=== PATIENT | male | born 1985 | race Caucasian/White ===

== ENCOUNTER 2024-02-23 08:37 | Outpatient (AMB) | payer OTHER, SELFPAY ==
--- NOTE | 2024-02-23 08:49 | A.OFFPC_ITS ---
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 Intake Note: patient here for new patient visit c/o high BP meds needed Field Research Associate Required: No Allergies No Known Allergies Allergy (Verified 02/23/24 09:05) Medication List - Last Reconciled 02/23/24 by Nancy Marlow CNP carvedilol 6.25 mg PO BID empagliflozin (Jardiance) 10 mg PO DAILY sacubitril-valsartan 49-51 mg (Entresto) 1 tab PO BID Tobacco use date assessed: 02/23/24 Dental Screening Dental Screen Date: 02/23/24 Did you have a dental visit in the last 12 months?: No Did you have a dental problem in the last 6 months where you did not have access to dental care?: No Was dental information given to patient?: Yes HPI HPI Comments History of Present Illness Details The patient presents for a new patient visit without any specific complaints. The patient is a 39-year-old male presenting for a new patient visit. He has a history of Congestive Heart Failure (CHF), Essential Hypertension, psoriasis, and nearsightedness. The CHF incident occurred back in November, where he was hospitalized in the ICU for approximately five days (from Friday to ) at [facility] due to exacerbation of CHF. Since the hospitalization, he has been under the care of a engraver tire mold, Dr. Calvin Trevino at [facility] in [facility], and has been following a low sodium diet as a preventative measure. The patient has not experienced any further complications post-hospitalization and reports compliance with his prescribed medications. His previous primary care physician was Dr. Álvaro Little at [facility], with his last visit being prior to COVID-19 onset in early 2019. The patient was previously on carvedilol 6.25 mg twice daily, sacubitril-valsartan (Entresto) 49-51 mg twice daily, and Jardiance 10 mg daily, which he continues to take. He as been using a steroid cream, does not recall name, for his psoriasis. He usually get psoriasis rash to his neck, anterior trunk and upper thighs; no acute flare up or itching at this time. He has a history of smoking, having quit in [id number] after approximately 8-10 years of a pack-a-day habit. He has refrained from smoking since and does not use recreational drugs or consume alcohol. Social History - Employment: Works in [employer], highly mobile due to job tasks at [employer]. - Housing: Resides in [place]. - Substance Use: Previous smoker (8-10 y ears, ceased in ), non-drinker, no recreational drug use. - Exercise: No regular exercise regimen, reliant on job for physical activity. - Nutritional Intake: Adheres to a low-s odium diet post-CHF incident; significant dietary changes to healthier eating habits avoiding junk food and snacking on almonds. Health Maintenance - Tetanus Vaccine: Last received over te n years ago, recommended to receive during this visit. - Influenza Vaccine: Not yet received year, plans to receive at the [facility]. - Eye Examination: Last performed approx imately four years ago, requires referral to ophthalmology for routine eye exam. - Dental Care: Last visit to a dentist w as more than four years ago; encouraged to follow up. - Prostate-Specific Antigen: Recommended for screening. - Weight Management: Current weight levamy l at 259 pounds, BMI is 37.2; suggested diet and exercise moderation and optional referral to a product examiner. 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 1. Little interest or pleasure in doing things: more than half the days 2. Feeling down, depressed, or hopeless: not at all 3. Trouble falling or staying asleep, or sleeping too much: not at all 4. Feeling tired or having little energy: not at all 5. Poor appetite or overeating: not at all 6. Feeling bad about yourself - or that you are a failure or have let yourself or your family down: not at all 7. Trouble concentrating on things, such as reading the newspaper or watching television: not at all 8. Moving or speaking so slowly that other people could have noticed. Or the opposite - being so fidgety or restless that you have been moving around a lot more than usual: not at all 9. Thoughts that you would be better off or of hurting yourself in some way: not at all Total score: 2 Depression Screening Interpretation: Negative Depression Screening Done: Yes 56237 - PHQ-9 Billing: Yes Source: Developed by Drs. Lalito Briggs, Shayy Feldman, Tony Lizama and colleagues, with an educational joe from [employer]. Thrive Questionnaire Date Thrive assessed: 02/23/24 I am a: Patient What is your living situation today?: I have a steady place to live Within the past 12 months, did the food you bought not last and you didn't have the money to get more?: Never true Within the past 12 months, did you worry whether your food would run out before you got money to buy more?: Never true Do you have trouble paying for medicines?: No Do you have trouble getting transportation to medical appointments?: No Do you have trouble paying your heating and electricity bill?: No Do you have trouble taking care of your child, family member or friend?: No Do you have trouble with day-to-day activities such as bathing, preparing meals, shopping, managing finances, etc.?: No Are you currently unemployed and looking for a job?: No Are you interested in more education?: No Please select the resources that you would like help with: None Currently or been in a relationship where the following occur: No concerns reported THRIVE Score: 0 AUDIT C Alcohol Use Questionnaire (AUDIT-C) 1. How often do you have a drink containing alcohol?: Never Total Score: 0 ROHITH-7 AMB Questionnaire ROHITH-7 Date ROHITH - 7 assessed: 02/23/24 Feeling nervous, anxious, or on edge: 0 = Not at all Not being able to stop or control worryin = Not at all Worrying too much about different things: 0 = Not at all Trouble relaxin = Not at all Being so restless that it is hard to sit still: 0 = Not at all Becoming easily annoyed or irritable: 1 = Several days Feeling afraid as if something awful might happen: 0 = Not at all Total ROHITH-7 score (0-4 normal; 5-9 mild; 10-14 moderate; 15-21 severe): 1 Source: Developed by Drs. Lalito Briggs, Shayy Feldman, Tony Lizama and colleagues, with an educational joe from [employer]. ROHITH-7 Assessment Billing ROHITH-7 Assessment Tool: ROHITH-7 Assessment 04506 Review of Systems Const Details: Denies chills, Denies fatigue, Denies fever(s), Denies headache(s) and Denies weakness HEENT Denies change in vision, Denies dizziness, Denies headache(s), Denies hearing loss, Denies nasal congestion, Denies sinus pain, Denies sinus pressure and D enies sore throat Card Denies chest pain, Denies lightheadedness, Denies dyspnea and Denies other (palpitations) Resp Denies cough, Denies dyspnea and Denies wheezing GI Denies abdominal pain, Denies melena, Denies hematochezia, Denies change in bowel habits, Denies dyspepsia and Denies nausea Denies hematuria and Denies dysuria Musc Denies abnormal gait, Denies myalgias, Denies arthralgias, Denies numbness and Denies tingling Skin/Breast Reports psoriatic rash to his right lateral neck, Denies unusual bruising and Denies wounds Neuro Denies abnormal gait, Denies dizziness, Denies headache(s), Denies memory loss, Denies numbness, Denies Sensory deficit (Neuro), Denies tingling and Denies weakness Psych Denies anxiety, Denies depression and Denies memory loss Endo Denies cold intolerance, Denies fatigue, Denies heat intolerance, Denies polydipsia and Denies polyuria Maximiliano/Lymph Denies easy bleeding and Denies easy bruising Aller/Immun Denies wheezing Physical exam (Primary Care) Vital Signs: Last Vital Signs Temp 98.1 F 02/23/24 09:03 Pulse 76 02/23/24 09:03 Resp 16 02/23/24 09:03 BP 111/66 02/23/24 09:03 Pulse Ox 97 02/23/24 09:03 Oxygen Delivery Method Room Air 02/23/24 09:03 BMI result Body Mass Index 37.2 Tobacco/Smoking Status: Tobacco use Status Tobacco use date assessed 02/23/24 02/23/24 09:00 Patient Tobacco Use Status Former Tobacco user 02/23/24 09:00 e-Cigarette/Vaping Use Never Used 02/23/24 09:00 PHQ-9: PHQ-9 Score PHQ-9: Total score 2 02/23/24 09:06 Depression Screening Interpretation: Negative Thrive Assessment: Date of Thrive Assessment Date Thrive assessed 02/23/24 02/23/24 09:06 Currently or been in a relationship where the following occur: No concerns reported Const Other: General: no acute distress, well developed, alert and awake Nutritional Appearance: well nourished Orientation/consciousness: patient oriented x3 HENMT Head: Yes normocephalic and Yes atraumatic Ears: hearing grossly normal bilaterally and TM's normal bilaterally General nose exam: Normal external nose present and Normal nares present Mouth: Normal oral and palatal mucosa present and moist mucous membranes Teeth and gingiva: dentition normal Throat: Yes oropharynx normal Eyes Pupils: Equal, round and reactive pupils present and Pupil accommodation reflex normal EOM: EOMs intact bilaterally Neck Neck: Yes normal visual inspection, Yes no lymphadenopathy and Yes trachea midline Thyroid: Thyroid normal Carotids: no bruits Lymphatic: no lymphadenopathy noted Chest Chest palpation & inspection: normal inspection of the chest Resp Effort & Inspection: normal respiratory effort Auscultation: clear to auscultation bilaterally Cardio Rate: regular rate Rhythm: regular rhythm Heart sounds: S1 normal heart sound present, S2 normal heart sound present, no gallops, no murmurs and no rubs Bruits: no abdominal aortic bruits and no carotid bruits GI Palpation (GI): No Abdominal aortic bruit present, Soft to palpation, nontender, No hepatosplenomegaly present and No Rebound tenderness present Auscultation: normal bowel sounds General: Yes no CVA tenderness Back/Spine/Pelvis Back: no CVA tenderness Cervical Spine: cervical ROM normal and No Cervical spine tenderness Thoracic/Lumbar Spine: thoraco-lumbar ROM normal, No pain with thoraco-lumbar ROM, No thoracic spinal tenderness and No lumbar spinal tenderness Skin General: warm and dry. Normal skin color. Normal skin turgor Lesions: no lesions Rashes: Red, raised, patches to his right lateral neck, consistent with psoriasis Trauma: no lacerations or abrasions Wounds: no wounds Nails: normal Neuro General: patient oriented x3, gait normal and CN's II-XI intact bilaterally Cranial nerves: Yes Equal, round and reactive pupils present Cognition (Neuro): normal cognition Gait exam (Neuro): Normal gait present Motor exam (neuro): 5/5 motor strength present throughout Sensory Exam: No Sensory deficit (Neuro) Deep tendon reflexes (DTR's): Right patellar reflex intensity grade: 2+ and Left patellar reflex intensity grade: 2+ Extrem General: Yes normal to inspection, No edema and No calf tenderness Psych Appearance: grossly normal Affect: normal affect Attitude: cooperative Thought process: Normal thought process present Immunizations Boostrix Tdap 2.5 Lf unit-8 mcg-5 Lf/0.5 mL intramuscular syringe Performing Provider: Nancy Marlow CNP Performing Location: [facility] [place] [facility] Administered by: Luci Stratton RN on 02/23/24 09:58 Dose Route Admin Location Dispensed Lot Number Expiration Date NDC Sinter Machine Operator 0.5 mL IM Right Deltoid 0.5 mL [id number] 12/26/24 [id number] JETME VIS Given Date VIS Provided VIS Publication Date 02/23/24 Single Vaccine 20 Eligibility Eligibility Date Funding Source Not [facility] Eligible 02/23/24 Private Coding Level of Care Code New Pt Prev Care 40-64y(65628) Diagnoses Normal physical examination, routine Z00.00 CHF (congestive heart failure) I50.9 High blood pressure I10 Myopia H52.10 Vaccine for tetanus toxoid Z23 Psoriasis L40.9 Obesity (BMI 30-39.9) E66.9 Laboratory tests ordered as part of a complete physical exam (CPE) Z00.00 Additional Codes ROHITH-7 Assessment Billing - ROHITH-7 Assessment Tool: ROHITH-7 Assessment 43694 ([id number]) PHQ-9 - 08133 - PHQ-9 Billing: Yes ([id number]) Assessment & Plan Assessment & Plan (1) Normal physical examination, routine: Code(s): Z00.00 - Encounter for general adult medical examination without abnormal findings Category: Medical Plan: No significant functional limitation. (2) CHF (congestive heart failure): Code(s): I50.9 - Heart failure, unspecified Category: Medical Plan: Maintain current regimen of carvedilol, entresto, and jardiance; monitoring of blood pressure and adherence to low-sodium diet. Follow up with engraver tire mold as scheduled. (3) High blood pressure: Code(s): I10 - Essential (primary) hypertension Category: Medical Plan: Plan as above. (4) Myopia: Code(s): H52.10 - Myopia, unspecified eye Category: Medical Plan: Referral to ophthalmology is advised for a comprehensive eye exam and prescription evaluation. (5) Vaccine for tetanus toxoid: Code(s): Z23 - Encounter for immunization Category: Medical Plan: Tetanus vaccine administered today. (6) Psoriasis: Code(s): L40.9 - Psoriasis, unspecified Category: Medical Plan: Red, raised, patches to his right lateral neck, consistent with psoriasis. Continue current treatment regimen. Notify PCP for as needed. (7) Obesity (BMI 30-39.9): Code(s): E66.9 - Obesity, unspecified Category: Medical Plan: Declines referral to dietitian/product examiner. Will continue with healthy dietary choices and start routine physical exercise. Healthy diet and routine exercise encouraged. Follow-up PCP as needed. (8) Laboratory tests ordered as part of a complete physical exam (CPE): Code(s): Z00.00 - Encounter for general adult medical examination without abnormal findings Category: Medical Plan: Fasting labs ordered as part of a complete physical exam. Advised to fast for at least 10 hours before getting labs drawn. May drink water Verbalized understanding and agreed with treatment plan. Plan During the appointment, we discussed the importance of maintaining cardiovascular health through continued medication adherence and lifestyle modifications, including following a low-sodium diet. The potential benefits of regular exercise were highlighted, though the patient is physically active through his work. We confirmed the patient will follow up with his engraver tire mold. Routine health screenings were recommended, including a tetanus booster, and arrangements were made for a referral to ophthalmology for his myopia management. The patient accepted the recommended vaccination and planned future screenings without hesitance. No acute health issues or additional concerns were raised. Orders: Orders Comprehensive [place]. Panel Fast Today Z00.00 - Encounter for general adult medical examination without abnormal findings Lipid Panel Today Z00.00 - Encounter for general adult medical examination without abnormal findings TSH reflex Free T4 Today Z00.00 - Encounter for general adult medical examination without abnormal findings UA CC w/rflx Micro + Cult Today Z00.00 - Encounter for general adult medical examination without abnormal findings PSA, Ultra Sensitive Today Z00.00 - Encounter for general adult medical examination without abnormal findings Microalbumin, Random (w Creat) Today Z00.00 - Encounter for general adult medical examination without abnormal findings TDaP Immunization Today Z23 - Encounter for immunization Complete Blood Count Auto Diff Today Z00.00 - Encounter for general adult medical examination without abnormal findings Referrals Ophthalmology Referral H52.10 - Myopia, unspecified eye Medications: New Boostrix Tdap (diphth,pertus(acell),tetanus) 0.5 mL IM ONCE 0.5 mL 0RF NS Z23 - Encounter for immunization Patient Instructions: - Obtain tetanus vaccination today. - Follow up with an film or videotape editor for vision examination. - Schedule and attend a dental evaluation. - Maintain adherence to prescribed medication regimen. - Continue low-sodium dietary modifications for CHF management. - Engage in a regular exercise program if feasible. - Schedule an influenza vaccine at the [facility] when convenient. - Fast 10-12 hours for upcoming lab work and schedule follow-up for results discussion.
[2024-02-23 09:03] VITALS: BP 111/66; PULSE 76; RESP 16; TEMP 36.7; O2SAT 97; BMI 37.2
== END 2024-02-23 09:39 | disposition home or self-care (01) ==
PROVIDERS: PCP Nurse Practitioner Family; Visit Provider Nurse Practitioner Family
DX: Z00.00 Encounter for general adult medical examination without abnormal findings (principal); I11.0 Hypertensive heart disease with heart failure; I50.9 Heart failure, unspecified; E66.9 Obesity, unspecified; Z68.37 Body mass index [BMI] 37.0-37.9, adult; L40.9 Psoriasis, unspecified; H52.10 Myopia, unspecified eye

== ENCOUNTER → 2024-02-23 08:37 | Outpatient (BNVA) | payer OTHER, SELFPAY | PROVIDERS: PCP Nurse Practitioner Family; Visit Provider Nurse Practitioner Family | DX: Z00.00 Encounter for general adult medical examination without abnormal findings (principal); Z23 Encounter for immunization; I11.0 Hypertensive heart disease with heart failure; I50.9 Heart failure, unspecified; H52.10 Myopia, unspecified eye; L40.9 Psoriasis, unspecified; E66.9 Obesity, unspecified; Z68.37 Body mass index [BMI] 37.0-37.9, adult | CPT/HCPCS: 90471; 90715; 96127 ==

== ENCOUNTER 2024-03-03 13:49 | Outpatient (REF) | payer OTHER, SELFPAY ==
[2024-03-03 14:11] LABS: MANUAL DIFF FLAG NO
[2024-03-03 15:00] LABS: Basophils Absolute Auto 0.1 X10*3/uL (0.0-0.2); Basophils Percent Auto 0.8 % (0-2); Eosinophils Absolute Auto 0.1 X10*3/uL (0.0-0.4); Eosinophils Percent Auto 1.4 % (0-4); Imm Gran Abs Auto 0.04 X10*3/uL (0.00-0.03); Imm Gran Pct Auto 0.6 % (0.0-0.4); Lymphocytes Absolute Auto 1.2 X10*3/uL (1.2-4.9); Lymphocytes Percent Auto 17.9 % (20-40); Mean Corpuscular Hemoglobin 27.7 pg (27.0-33.0); Mean Corpuscular Volume 81.3 fL (80.0-98.0); Mean Platelet Volume 10.5 fL (9.4-12.4); Monocytes Absolute Auto 0.5 X10*3/uL (0.1-1.2); Monocytes Percent Auto 8.2 % (2-11); Neutrophils Absolute Auto 4.6 x10*3/uL (2.0-8.3); Neutrophils Percent Auto 71.1 % (45-73); Platelet Count 202 X10*3/uL (160-400); Red Blood Count 5.78 X10*6/uL (4.60-5.80); Red Cell Distribution Width 18.1 % (11.0-16.0); White Blood Count 6.5 X10*3/uL (4.8-10.8)
[2024-03-03 15:00] LABS: Appearance Urine Clear; Color Urine Yellow; Glucose Urine UA >=1000 mg/dL (Negative); Leukocyte Esterase Urine Negative (Negative); Nitrite Urine Negative (Negative); Specific Gravity - Urine >= 1.030 (1.005-1.025); UMIC TRIGGER UACC YES; Urine Blood Negative (Negative); Urine Ketones Negative (Negative); Urine Protein Trace mg/dL (Neg-Trace)
[2024-03-03 15:07] LABS: Bacteria Urine None Seen (None Seen); Hyaline Casts Urine 0-2 /LPF (0-2); RBC Urine 0-2 /HPF (0-2); Squamous Epithelial Cell Urine 0-2 /HPF (0-2); WBC Urine 0-5 /HPF (0-5)
[2024-03-03 15:33] LABS: Creatinine Urine 143.36 mg/dL; Microalbum/Creatinine Ratio Ur 42.5 ug/mg cr (<30)
[2024-03-03 15:42] LABS: Alanine Aminotransferase 17 U/L (0-40); Albumin Level 4.3 g/dL (3.5-5.0); Alkaline Phosphatase 65 U/L (39-117); Anion Gap 13 (12-20); Aspartate Amino Transferase 26 U/L (5-37); Blood Urea Nitrogen 11 mg/dL (9-16); Calcium 9.6 mg/dL (8.4-10.2); Carbon Dioxide 24 mmol/L (22-29); Chloride 109 mmol/L (96-108); Cholesterol 150 mg/dL (<200); Estimated Glomerular Filt Rate 56; Glucose Fasting 79 mg/dL (60-99); HDL Cholesterol 29 mg/dL (>40); LDL Cholesterol Calculated 99 mg/dL (<100); Potassium 4.1 mmol/L (3.3-5.1); Sodium 142 mmol/L (135-145); Total Protein 7.1 g/dL (6.5-8.0); Triglycerides 112 mg/dL (<150)
[2024-03-03 15:59] LABS: TSH reflex Free T4 1.71 uIU/mL (0.32-4.0)
--- OUTSIDE RECORDS SUMMARY | 2024-03-09 20:00 | XMS_ITS | Data Portability ---
Author Organization [place] - [facility], Allergy Address [address] [address] Assessment Encounter Date Assessment Date Assessment LastModified by Organization Details LastModified Time 09/22/2023 09/22/2023 Patient with recent severe epistaxis requiring emergent nasal packing. The rapid rhino was removed today without difficulty. Patient did not have any further bleeding following pack removal. I recommend use of nasal saline spray and a water-based lubricant intranasally several times a day over the next few weeks. Epistaxis precautions discussed and patient handout given. Follow up as needed if bleeding recurs. [email or web address] Not available 09/22/2023 09:15:38 Plan of Treatment Reminders Order Date Submit Date Provider Last Modified By Organization Details Last Modified Time Details Appointments None record ed. Lab None record ed. Referral None record ed. Procedures None record ed. Surgeries None record ed. Imaging None record ed. Medication Orders None record ed. Patient TargetsNo targets recorded. Patient InstructionsNo instructions recorded. Reason for Referral None Reported. Problems Name Problem SNOMED Code Status Onset Date Resolution Date Notes Provider Name and Address Organization Details Recorded Time Bleeding from nose 229068441 Active 2023 HOLLY CAMPOS MD [address] [facility], [place], [address], [place] - [facility] 4 09:03:58 Hypertensive urgency 058049396 Active 2023 HOLLY CAMPOS MD [address] [facility] [address], [place], [address], [place] - [facility] 4 09:16:18 Problem Notes None recorded. Medical Equipment None Reported. Medications Name Sig Start Date Stop Date Status Note LastModified by Organization Details LastModified Time amlodipine 5 mg tablet TAKE 1 TABLET BY MOUTH EVERY DAY active Not Available Not Available No t Available Vitals Date Recorded Body height Body mass index (BMI) Body weight Provider Name and Address Organization Details Last Updated DateTime 09/22/2023 177.8 cm 40.2 kg/m2 306286.86 g Joanne Bowensareli [place] - [facility] 09/22/2023 09:04:15 Social History None recorded. Functional Status None recorded. Mental Status None recorded. Family History Nothing Reported. Medical History No medical history recorded. Past Encounters Encounter ID Performer Location Encounter Start Date Encounter Closed Date Diagnosis/Indication Diagnosis SNOMED-CT Code Diagnosis ICD10 Code [id number] HOLLY CAMPOS MD [facility] [address] [address] 09/22/2023 08:55:29 09/22/2023 09:21:22 Bleeding from nose 523379858 R04.0 Hypertensive urgency 443 [id number] I16.0 Health Concerns Section Related Observation LastModified by Organization Detai ls LastModified Time None Recorded Concern Status LastModified by Organization Details LastModified Time None Recorded Advance Directives Directive None Recorded Payers Encounter Date Sequence Insurance Name Policy Number Policy Pearl Covered Member ID Pearl Member ID Guarantor Name 09/22/2023 1 [facility] [id number] 1 Volodymyr Castro [id number] Volodymyr Castro Notes Date Note Type Note Provider Name and Address Organization Details Recorded Time 09/22/2023 text/html epistaxis RIGHT sidedsetting of HTNsmaller episodes started Friday and then severe was last Frieen in ER with placement of nasal balloonBP was 223/172 in ER and was started on amlodipineno recent nasal traumano use of anticoagulants HOLLY CAMPOS MD [address] [place] [address], [phone], [facility] - [facility] 09/22/2023 09:16:40
[2024-03-09 21:44] LABS: PSA, Ultra Sensitive 2.79 ng/mL
== END 2024-03-03 13:50 | disposition home or self-care (01) ==
LOC: HO.LAB 13:49
PROVIDERS: PCP Nurse Practitioner Family; Visit Provider Nurse Practitioner Family
DX: Z00.00 Encounter for general adult medical examination without abnormal findings (principal); Z12.5 Encounter for screening for malignant neoplasm of prostate
CPT/HCPCS: 36415; 80053; 80061; 81001; 81003; 82043; 82570; 84153; 84443; 85025

== ENCOUNTER 2024-04-07 15:32 | Outpatient (AMB) | payer OTHER, SELFPAY ==
--- NOTE | 2024-04-07 15:28 | A.OFFPC_ITS ---
Intake Visit Reasons: F/U appointment Intake Note: patient here for follow up telehealth appt Music Agent Required: No Allergies No Known Allergies Allergy (Verified 04/07/24 15:29) Tobacco use date assessed: 04/07/24 Dental Screening Dental Screen Date: 04/07/24 Did you have a dental visit in the last 12 months?: No Did you have a dental problem in the last 6 months where you did not have access to dental care?: No Was dental information given to patient?: No HPI HPI Comments History of Present Illness Details 39-year-old male presents for telehealth visit for review of recent lab results. Admits to taking his medications as prescribed without adverse reactions. He offers no complaints and denies acute symptoms at this time. He has a follow up appointment up appointment with cardiology next month. [facility] Medical History (Updated 04/07/24 @ 15:47 by Nancy Marlow CNP) CHF (congestive heart failure) High blood pressure Family History (Updated 02/23/24 @ 09:12 by Nehal Man) Father High blood pressure Paternal Grandfather High blood pressure Diabetes Brother High blood pressure Other Clotting disorder Social History Housing: Apartment Patient Tobacco Use Status: Former Tobacco user Cigarette Packs Per Day: 1 Cigarettes Per Day: 20 Years Smoked: 8-10 years Packs Per Year: 0 Packs per year/per ci.00 e-Cigarette/Vaping Use: Never Used Second Hand Smoke Exposure: No service: No Current occupational status: employed 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 How often do you have six or more drinks on one occasion?: Never Total Score: 0 ROHITH-7 AMB Questionnaire ROHITH-7 Date ROHITH - 7 assessed: 02/23/24 Source: Developed by Drs. Lalito Briggs, Shayy Feldman, Tony Lizama and colleagues, with an educational joe from [employer]. Review of Systems Const Details: Denies chills, Denies fatigue, Denies fever(s), Denies headache(s) and Denies weakness Cardiac Denies chest pain, Denies claudication, Denies leg edema, Denies lightheadedness, Denies palpitations, Denies dyspnea, Denies dyspnea on exertion, Denies orthopnea and Denies other (Loss of consciousness) Resp Denies cough, Denies excessive phlegm production, Denies dyspnea, Denies dyspnea on exertion, Denies snoring and Denies wheezing Physical exam (Primary Care) Tobacco/Smoking Status: Tobacco use Status Tobacco use date assessed 04/07/24 04/07/24 15:31 Patient Tobacco Use Status Former Tobacco user 04/07/24 15:31 e-Cigarette/Vaping Use Never Used 04/07/24 15:31 Thrive Assessment: Date of Thrive Assessment Date Thrive assessed 02/23/24 04/07/24 15:31 Const Other: Telehealth visit. No physical exam. Telehealth Telehealth Telehealth Platform: Telephone Location of provider rendering services: practice address Location of patient: address on file Patient Identification confirmed using: Name, : Yes Telehealth method: voice only Patient verbally consented to treatment: Yes Patient verbally consented to billing insurance company: Yes Patient informed of any privacy concerns related to visit: Yes Coding Level of Care Code Tele Est Pt Level 3 (69927) Diagnoses Low HDL (under 40) E78.6 Microalbuminuria R80.9 Time Spent (min) 10 Assessment & Plan Assessment & Plan (1) Low HDL (under 40): Code(s): E78.6 - Lipoprotein deficiency Category: Medical Plan: Recent HDL level is low, 29. Advised to limit foods high in saturated fat and avoid foods high in trans fat. Routine exercise encouraged. Verbalized understanding and agreed with treatment plan. (2) Microalbuminuria: Code(s): R80.9 - Proteinuria, unspecified Category: Medical Plan: Recent urine microalbumin/creatinine ratio is elevated, 42.5. Normal BUN and creatinine ratio. Dehydration is likely. Adequate hydration encouraged. Will recheck urine microalbumin/creatinine ratio. Advised to get lab work done before his next visit. Follow-up in 3 months for hypertension or sooner with symptoms or concerns. Verbalized understanding and agreed with treatment plan. Orders: Orders Microalbumin, Random (w Creat) Today R80.9 - Proteinuria, unspecified
--- OUTSIDE RECORDS SUMMARY | 2024-04-07 15:34 | XMS_ITS | Data Portability ---
Author Organization [place] - [facility] Address [address] [address] Assessment Encounter Date Assessment Date Assessment LastModified [...] Organization Details Recorded Time Bleeding from nose [id number] Active 2023 HOLLY CAMPOS MD 100 [facility] 100, [place], [address], [place] [facility] 4 09:03:58 Hypertensive urgency 914344117 Active 2023 HOLLY CAMPOS MD 100 [facility] 100, [place], [address], [place] [facility] 4 09:16:18 Problem Notes None recorded. Medical [...] Updated DateTime 09/22/2023 177.8 cm 40.2 kg/m2 509123.86 g Joanne Briggs [place] - [facility] 09/22/2023 09:04:15 Social History None recorded. Functional Status None recorded. Mental Status None recorded. Family History Nothing Reported. Medical History No medical history recorded. Past Encounters Encounter ID Performer Location Encounter Start Date Encounter Closed Date Diagnosis/Indication Diagnosis SNOMED-CT Code Diagnosis ICD10 Code Diagnosis Note [id number] HOLLY CAMPOS MD [facility] [address] [address] 09/22/2023 08:55:29 09/22/2023 09:21:22 Bleeding from nose 738712272 R04.0 Likely related to significan t hypertensi on. He will work with a primary care provider when he establishe s to help better manage this likely causal agent for his epistaxis Hypertensive urgency [phone] [id number] I16.0 Health Concerns Section Related Observation LastModified by Organization Detai ls LastModified Time None Recorded Concern Status LastModified by Organization Details LastModified Time None Recorded Advance Directives Directive None Recorded Payers Encounter Date Sequence Insurance Name Policy Number Policy Pearl Covered Member ID Pearl Member ID Guarantor Name 09/22/2023 1 [facility] [id number] 1 Volodymyr Castro [id number] Volodymyr Castro Notes Date Note Type Note Provider Name and Address Organization Details Recorded Time 09/22/2023 text/html epistaxis RIGHT sidedsetting of HTNsmaller episodes started Friday and then severe was last Fri 6/een in ER with placement of nasal balloonBP was 223/172 in ER and was started on amlodipineno recent nasal traumano use of anticoagulants HOLLY CAMPOS MD [address] [place] [address], [phone], [facility] - [facility] 09/22/2023 09:16:40
== END 2024-04-07 16:02 | disposition home or self-care (01) ==
LOC: HO.HMCFM 15:32
PROVIDERS: PCP Nurse Practitioner Family; Visit Provider Nurse Practitioner Family
DX: E78.6 Lipoprotein deficiency (principal); R80.9 Proteinuria, unspecified

== ENCOUNTER → 2024-04-07 15:32 | Outpatient (BNVA) | payer OTHER, SELFPAY | PROVIDERS: PCP Nurse Practitioner Family; Visit Provider Nurse Practitioner Family ==

== ENCOUNTER 2024-06-30 07:05 | Outpatient (REF) | payer OTHER, SELFPAY ==
--- OUTSIDE RECORDS SUMMARY | 2024-06-30 07:08 | XMS_ITS | Clinical Summary ---
Author Organization [facility] Facility Address [address] [place] [address] Care Team Providers Care Building Rental Manager Name Role Phone Nancy Marlow CNP Primary Care Provider [phone] Social History Tobacco Use Types Packs/Day Years Used Date Smoking Tobacco: Never Assessed Sex and Gender Information Value Date Recorded Sex Assigned at Not on file Legal Sex Male 11:07 AM EDT Gender Identity Not on file Sexual Orientation Not on file Plan of Treatment Health Maintenance Due Date Last Done Comments Pneumococcal Vaccine: Pediat rics (0 to 5 Years) and At-Risk Patients (6 to 64 Years) (1 of 2 - PCV) 02/09/1990 Hepatitis B Vaccine (1 of 3 - 19+ 3-dose series) 02/09 Influenza Vaccine (#1) 2023 Insurance [facility] Care Teams Building Rental Manager Relationship Specialty Start Date End Date Nancy Marlow CNP [address], [place] [phone] PCP - General 12/18/23
--- OUTSIDE RECORDS SUMMARY | 2024-06-30 07:08 | XMS_ITS | Data Portability ---
Author Organization [place] - [facility] Address [address] [address] Assessment Encounter Date Assessment Date Assessment LastModified [...] Organization Details Recorded Time Bleeding from nose [id number] Active 2023 HOLLY CAMPOS MD 100 [facility] 100, [place], [address], [place] [facility] 4 09:03:58 Hypertensive urgency 960090395 Active 2023 HOLLY CAMPOS MD 100 [facility] 100, [place], [address], [place] [facility] 4 09:16:18 Problem Notes None recorded. [...] Updated DateTime 09/22/2023 177.8 cm 40.2 kg/m2 898343.86 g Joanne Briggs [place] - [facility] 09/22/2023 09:04:15 Social History None recorded. Functional Status None recorded. Mental Status None recorded. Family History Nothing Reported. Medical History No medical history recorded. Past Encounters Encounter ID Performer Location Encounter Start Date Encounter Closed Date Diagnosis/Indication Diagnosis SNOMED-CT Code Diagnosis ICD10 Code Diagnosis Note [id number] HOLLY CAMPOS MD [facility] [address] [address] 09/22/2023 08:55:29 09/22/2023 09:21:22 Bleeding from nose [id number] R04.0 Likely related to significan t hypertensi on. He will work with a primary care provider when he establishe s to help better manage this likely causal agent for his epistaxis Hypertensive urgency [phone] I16.0 Health Concerns Section Related Observation LastModified by Organization Detai ls LastModified Time None Recorded Concern Status LastModified by Organization Details LastModified Time None Recorded Advance Directives Directive None Recorded Payers Encounter Date Sequence Insurance Name Policy Number Policy Pearl Covered Member ID Pearl Member ID Guarantor Name 09/22/2023 1 [facility] [id number] 1 Volodymyr Castro [id number] Volodymyr Castro Notes Date Note Type Note Provider Name and Address Organization Details Recorded Time 09/22/2023 text/html epistaxis RIGHT sidedsetting of HTNsmaller episodes started Friday and then severe was last Fri 6/een in ER with placement of nasal balloonBP was 223/172 in ER and was started on amlodipineno recent nasal traumano use of anticoagulants HOLLY CAMPOS MD [address] [place] [address], [phone], [facility] - [facility] 09/22/2023 09:16:40
[2024-06-30 08:24] LABS: Appearance Urine Clear; Color Urine Yellow; Glucose Urine UA Negative (Negative); Leukocyte Esterase Urine Negative (Negative); Nitrite Urine Negative (Negative); Specific Gravity - Urine 1.025 (1.005-1.025); Urine Blood Negative (Negative); Urine Ketones Negative (Negative); Urine Protein Negative (Neg-Trace)
[2024-06-30 08:33] LABS: Creatinine Urine 209.21 mg/dL; Microalbum/Creatinine Ratio Ur 7.6 ug/mg cr (<30)
== END 2024-06-30 07:06 | disposition home or self-care (01) ==
LOC: HO.LAB 07:05
PROVIDERS: PCP Nurse Practitioner Family; Visit Provider Nurse Practitioner Family
DX: Z00.00 Encounter for general adult medical examination without abnormal findings (principal); R80.9 Proteinuria, unspecified
CPT/HCPCS: 81003; 82043; 82570

== ENCOUNTER 2024-07-09 09:48 | Outpatient (AMB) | payer OTHER, SELFPAY ==
--- NOTE | 2024-07-09 09:54 | A.OFFPC_ITS ---
Vital Signs 07/09/24 09:59 07/09/24 10:27 07/09/24 11:42 Height 5 ft 10 in Weight 274 lb BMI 39.3 BP 181/106 H 180/118 H 134/90 H Blood Pressure Location Lt brachial Rt brachial Rt brachial Position Sitting Sitting Sitting Respiration 16 Pulse 59 68 Pulse Source Pulse Oximeter Auscultation Temp 98.1 F Temp Source Oral Pulse Oximetry (%) 100 Oxygen Delivery Method Room Air Intake Visit Reasons: 3 mos HTN Intake Note: patient here for 3 month follow up on HTN Skin Care Technician Required: No Allergies No Known Allergies Allergy (Verified 07/09/24 10:18) Medication List - Last Reconciled 07/09/24 by Nancy Marlow CNP carvedilol 6.25 mg PO BID sacubitril-valsartan 49-51 mg (Entresto) 1 tab PO BID Tobacco use date assessed: 07/09/24 Dental Screening Dental Screen Date: 07/09/24 Did you have a dental visit in the last 12 months?: No Did you have a dental problem in the last 6 months where you did not have access to dental care?: No Was dental information given to patient?: Yes HPI HPI Comments History of Present Illness Details 39-year-old male presents for hypertensi on and microalbuminuria follow- up. He admits to taking his medications as prescribed without adverse reactions. He has not taking Jardiance since he ran out of medication at the beginning of this year; he notes that the medication was never refilled by Cardiology. He has been making healthy lifestyle changes. He offers no complaints and denies acute symptoms at this time. He is followed by [facility] in [place] and was last seen in 12/2024. His next appointment is in 08/2024. [facility] Medical History (Updated 04/07/24 @ 15:47 by Nancy Marlow CNP) CHF (congestive heart failure) High blood pressure Family History (Updated 02/23/24 @ 09:12 by Nehal Man [place]) Father High blood pressure Paternal Grandfather High blood pressure Diabetes Brother High blood pressure Other Clotting disorder Social History Housing: Apartment Patient Tobacco Use Status: Former Tobacco user Cigarette Packs Per Day: 1 Cigarettes Per Day: 20 Years Smoked: 8-10 years Packs Per Year: 0 Packs per year/per ci.00 e-Cigarette/Vaping Use: Never Used Second Hand Smoke Exposure: No service: No Current occupational status: employed 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 1. Little interest or pleasure in doing things: not at all 2. Feeling down, depressed, or hopeless: not at all 3. Trouble falling or staying asleep, or sleeping too much: not at all 4. Feeling tired or having little energy: not at all 5. Poor appetite or overeating: not at all 6. Feeling bad about yourself - or that you are a failure or have let yourself or your family down: not at all 7. Trouble concentrating on things, such as reading the newspaper or watching television: not at all 8. Moving or speaking so slowly that other people could have noticed. Or the opposite - being so fidgety or restless that you have been moving around a lot more than usual: not at all 9. Thoughts that you would be better off or of hurting yourself in some way: not at all Total score: 0 Source: Developed by Drs. Lalito Briggs, Shayy Feldman, Tony Lizama and colleagues, with an educational oje from [employer]. Thrive Questionnaire Date Thrive assessed: 02/23/24 I am a: Patient What is your living situation today?: I have a steady place to live Within the past 12 months, did the food you bought not last and you didn't have the money to get more?: Never true Within the past 12 months, did you worry whether your food would run out before you got money to buy more?: Never true Do you have trouble paying for medicines?: No Do you have trouble getting transportation to medical appointments?: No Do you have trouble paying your heating and electricity bill?: No Do you have trouble taking care of your child, family member or friend?: No Do you have trouble with day-to-day activities such as bathing, preparing meals, shopping, managing finances, etc.?: No Are you currently unemployed and looking for a job?: No Are you interested in more education?: I choose not to answer this question Please select the resources that you would like help with: None Currently or been in a relationship where the following occur: No concerns reported THRIVE Score: 0 AUDIT C Alcohol Use Questionnaire (AUDIT-C) 1. How often do you have a drink containing alcohol?: Never Total Score: 0 ROHITH-7 AMB Questionnaire ROHITH-7 Date ROHITH - 7 assessed: 02/23/24 Feeling nervous, anxious, or on edge: 0 = Not at all Not being able to stop or control worryin = Not at all Worrying too much about different things: 0 = Not at all Trouble relaxin = Not at all Being so restless that it is hard to sit still: 0 = Not at all Becoming easily annoyed or irritable: 0 = Not at all Feeling afraid as if something awful might happen: 0 = Not at all Total ROHITH-7 score (0-4 normal; 5-9 mild; 10-14 moderate; 15-21 severe): 0 Source: Developed by Drs. Lalito Briggs, Shayy Feldman, Tony Lizama and colleagues, with an educational joe from [employer]. Review of Systems Const Details: Const Denies chills, Denies fatigue, Denies fever(s), Denies headache(s) and Denies weakness ENT Denies dizziness and Denies headache(s) Card Denies chest pain, Denies lightheadedness, Denies dyspnea and Denies other (Palpitations) Resp Denies cough, Denies dyspnea, Denies wheezing and Denies other ( shortness of breath) GI Denies abdominal pain, Denies melena, Denies hematochezia, Denies change in bowel habits, Denies dyspepsia and Denies nausea Denies hematuria and Denies dysuria Musc Denies abnormal gait, Denies myalgias, Denies arthralgias, Denies numbness and Denies tingling Skin/Breast Denies rash, Denies unusual bruising and Denies wounds Neuro Denies abnormal gait, Denies dizziness, Denies headache(s), Denies memory loss, Denies numbness, Denies Sensory deficit (Neuro), Denies tingling and Denies weakness Psych Denies anxiety, Denies depression, Denies memory loss Endo Denies cold intolerance, Denies fatigue, Denies heat intolerance, Denies polydipsia and Denies polyuria Aller/Immun Denies wheezing Physical exam (Primary Care) Vital Signs: Last Vital Signs Temp 98.1 F 07/09/24 09:59 Pulse 59 07/09/24 09:59 Resp 16 07/09/24 09:59 BP 180/118 H 07/09/24 10:27 Pulse Ox 100 07/09/24 09:59 Oxygen Delivery Method Room Air 07/09/24 09:59 BMI result Body Mass Index 39.3 Tobacco/Smoking Status: Tobacco use Status Tobacco use date assessed 07/09/24 07/09/24 10:06 Patient Tobacco Use Status Former Tobacco user 07/09/24 09:54 e-Cigarette/Vaping Use Never Used 07/09/24 09:54 PHQ-9: PHQ-9 Score PHQ-9: Total score 0 07/09/24 10:19 Thrive Assessment: Date of Thrive Assessment Date Thrive assessed 02/23/24 07/09/24 09:54 Currently or been in a relationship where the following occur: No concerns reported Const Other: General: no acute distress and well developed Nutritional Appearance: well nourished Orientation/consciousness: patient oriented x3 HENMT Head: Yes normocephalic and Yes atraumatic Eyes General: appearance normal, both eyes and all related structures Pupils: Equal, round and reactive pupils present EOM: EOMs intact bilaterally Resp Effort & Inspection: normal respiratory effort Auscultation: clear to auscultation bilaterally Cardio Rate: regular rate Rhythm: regular rhythm Heart sounds: S1 normal heart sound present, S2 normal heart sound present, no gallops, no murmurs and no rubs GI Palpation (GI): No Abdominal aortic bruit present, Soft to palpation, nontender, No hepatosplenomegaly present and No Rebound tenderness present Auscultation: normal bowel sounds General: Yes no CVA tenderness Back/Spine/Pelvis Back: no CVA tenderness Cervical Spine: cervical ROM normal and No Cervical spine tenderness Thoracic/Lumbar Spine: thoraco-lumbar ROM normal, No pain with thoraco-lumbar ROM, No thoracic spinal tenderness and No lumbar spinal tenderness Extrem General: Yes normal to inspection, No edema and No calf tenderness Skin General: warm and dry. Normal skin color. Normal skin turgor Neuro General: patient oriented x3, gait normal and no focal neuro deficit Cranial nerves: Yes Equal, round and reactive pupils present Cognition (Neuro): normal cognition Gait exam (Neuro): Normal gait present Sensory Exam: No Sensory deficit (Neuro) Psych Appearance: grossly normal Affect: normal affect Attitude: cooperative Thought process: Normal thought process present Coding Level of Care Code Est Pt Level 4 (00969) Diagnoses High blood pressure I10 Microalbuminuria R80.9 Assessment & Plan Assessment & Plan (1) High blood pressure: Code(s): I10 - Essential (primary) hypertension Category: Medical Plan: Resting blood pressure is 180/118, above goal of less than 130/80. Blood pressure improved to 134/96 45-50 minutes following administration of 2 mg of clonidine. Will increase Entresto to 97-103 mg twice daily; advised to take as prescribed. Routine exercise and low-sodium diet encouraged. Check blood pressure at least twice weekly, record readings, and bring to next appointment. Report readings persistently above 140/90. Advised to call his machine shorthand reporter and inquire about Jardiance refill. Follow-up in 2 weeks or sooner with symptoms or concerns. Verbalized understanding and agreed with treatment plan. (2) Microalbuminuria: Code(s): R80.9 - Proteinuria, unspecified Category: Medical Plan: Recent urine microalbumin/creatinine ratio is normal, 7.6. Adequate hydration encouraged. Verbalized understanding and agreed with the plan.
[2024-07-09 09:59] VITALS: BP 181/106; PULSE 59; RESP 16; TEMP 36.7; O2SAT 100; BMI 39.3
--- OUTSIDE RECORDS SUMMARY | 2024-07-09 10:24 | XMS_ITS | Clinical Summary ---
Author Organization [facility]ly [facility] Facility Address [address] [place] [address] Care Team Providers Care Field Pipelines Supervisor Name Role Phone Nancy Marlow CNP Primary Care Provider [phone] Social History Tobacco Use Types Packs/Day Years Used Date Smoking Tobacco: Never Assessed Sex and Gender Information Value Date Recorded Sex Assigned at Not on file Legal Sex Male 11:07 AM EDT Gender Identity Not on file Sexual Orientation Not on file Plan of Treatment Health Maintenance Due Date Last Done Comments Pneumococcal Vaccine: Peds ( 0 to 5 Years) and At-Risk Patients (6 to 49 Years) (1 of 2 - PCV) 02/09/1990 Hepatitis B Vaccine (1 of 3 - 19+ 3-dose series) 02/09 Influenza Vaccine (Season Ended) 2024 Insurance [facility] Care Teams Field Pipelines Supervisor Relationship Specialty Start Date End Date Nancy Marlow CNP [address] [place], [place] [phone] PCP - General 12/18/23
[2024-07-09 10:27] VITALS: BP 180/118
[2024-07-09 11:42] VITALS: BP 134/90; PULSE 68
== END 2024-07-09 11:47 | disposition home or self-care (01) ==
LOC: HO.HMCFM 09:49
PROVIDERS: PCP Nurse Practitioner Family; Visit Provider Nurse Practitioner Family
DX: I10 Essential (primary) hypertension (principal); R80.9 Proteinuria, unspecified

== ENCOUNTER → 2024-07-09 09:48 | Outpatient (BNVA) | payer OTHER, SELFPAY | PROVIDERS: PCP Nurse Practitioner Family; Visit Provider Nurse Practitioner Family ==

== ENCOUNTER 2024-07-23 09:52 | Outpatient (AMB) | payer OTHER, SELFPAY ==
--- NOTE | 2024-07-23 09:55 | A.OFFPC_ITS ---
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 Required: No Allergies No Known Allergies Allergy (Verified 07/23/24 10:23) Medication List - Last Reconciled 07/23/24 by Nancy Marlow CNP carvedilol 6.25 mg PO BID sacubitril-valsartan 97-103 mg (Entresto) 1 tab PO BID 30 days Tobacco use date assessed: 07/23/24 Dental Screening Dental Screen Date: 07/23/24 Did you have a dental visit in the last 12 months?: No Did you have a dental problem in the last 6 months where you did not have access to dental care?: No Was dental information given to patient?: No (already have a list) HPI HPI Comments History of Present Illness Details 39-year-old male presents for hypertensi on follow-up. He admits to taking her medications as prescribed without adverse reactions. He has been making healthy lifestyle changes including diet and exercise. He offers no complaints and denies acute symptoms at this time. No dizziness or lightheadedness. 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 Current occupational exposures/hazards: No Cognitive needs: No Hearing needs: No Vision needs: Yes Questionnaire Thrive Questionnaire Date Thrive assessed: 07/09/24 I am a: Patient What is your living situation today?: I have a steady place to live Within the past 12 months, did the food you bought not last and you didn't have the money to get more?: Never true Within the past 12 months, did you worry whether your food would run out before you got money to buy more?: Never true Do you have trouble paying for medicines?: No Do you have trouble getting transportation to medical appointments?: No Do you have trouble paying your heating and electricity bill?: No Do you have trouble taking care of your child, family member or friend?: No Do you have trouble with day-to-day activities such as bathing, preparing meals, shopping, managing finances, etc.?: No Are you currently unemployed and looking for a job?: No Are you interested in more education?: I choose not to answer this question Please select the resources that you would like help with: None Currently or been in a relationship where the following occur: No concerns reported THRIVE Score: 0 ROHITH-7 AMB Questionnaire ROHITH-7 Date ROHITH - 7 assessed: 02/23/24 Source: Developed by Drs. Lalito Briggs, Shayy Feldman, Tony Lizama and colleagues, with an educational joe from [employer]. Review of Systems Const Details: Const Denies chills, Denies fatigue, Denies fever(s), Denies headache(s) and Denies weakness ENT Denies dizziness and Denies headache(s) Card Denies chest pain, Denies lightheadedness, Denies dyspnea and Denies other (Palpitations) Resp Denies cough, Denies dyspnea, Denies wheezing and Denies other ( shortness of breath) GI Denies abdominal pain, Denies melena, Denies hematochezia, Denies change in bowel habits, Denies dyspepsia and Denies nausea Denies hematuria and Denies dysuria Musc Denies abnormal gait, Denies myalgias, Denies arthralgias, Denies numbness and Denies tingling Skin/Breast Denies rash, Denies unusual bruising and Denies wounds Neuro Denies abnormal gait, Denies dizziness, Denies headache(s), Denies memory loss, Denies numbness, Denies Sensory deficit (Neuro), Denies tingling and Denies weakness Psych Denies anxiety, Denies depression, Denies memory loss Endo Denies cold intolerance, Denies fatigue, Denies heat intolerance, Denies polydipsia and Denies polyuria Aller/Immun Denies wheezing Physical exam (Primary Care) Vital Signs: Last Vital Signs Temp 98.2 F 07/23/24 09:58 Pulse 64 07/23/24 09:58 Resp 16 07/23/24 09:58 BP 139/84 07/23/24 09:58 Pulse Ox 99 07/23/24 09:58 Oxygen Delivery Method Room Air 07/23/24 09:58 BMI result Body Mass Index 38.3 Tobacco/Smoking Status: Tobacco use Status Tobacco use date assessed 07/23/24 07/23/24 10:01 Patient Tobacco Use Status Former Tobacco user 07/23/24 10:01 e-Cigarette/Vaping Use Never Used 07/23/24 10:01 Thrive Assessment: Date of Thrive Assessment Date Thrive assessed 07/09/24 07/23/24 10:01 Currently or been in a relationship where the following occur: No concerns reported Const Other: General: no acute distress and well developed Nutritional Appearance: well nourished Orientation/consciousness: patient oriented x3 HENMT Head: Yes normocephalic and Yes atraumatic Eyes General: appearance normal, both eyes and all related structures Pupils: Equal, round and reactive pupils present EOM: EOMs intact bilaterally Resp Effort & Inspection: normal respiratory effort Auscultation: clear to auscultation bilaterally Cardio Rate: regular rate Rhythm: regular rhythm Heart sounds: S1 normal heart sound present, S2 normal heart sound present, no gallops, no murmurs and no rubs GI Palpation (GI): No Abdominal aortic bruit present, Soft to palpation, nontender, No hepatosplenomegaly present and No Rebound tenderness present Auscultation: normal bowel sounds General: Yes no CVA tenderness Back/Spine/Pelvis Back: no CVA tenderness Cervical Spine: cervical ROM normal and No Cervical spine tenderness Thoracic/Lumbar Spine: thoraco-lumbar ROM normal, No pain with thoraco-lumbar ROM, No thoracic spinal tenderness and No lumbar spinal tenderness Extrem General: Yes normal to inspection, No edema and No calf tenderness Skin General: warm and dry. Normal skin color. Normal skin turgor Neuro General: patient oriented x3, gait normal and no focal neuro deficit Cranial nerves: Yes Equal, round and reactive pupils present Cognition (Neuro): normal cognition Gait exam (Neuro): Normal gait present Sensory Exam: No Sensory deficit (Neuro) Psych Appearance: grossly normal Affect: normal affect Attitude: cooperative Thought process: Normal thought process present Coding Level of Care Code Est Pt Level 3 (94326) Diagnoses High blood pressure I10 Assessment & Plan Assessment & Plan (1) High blood pressure: Code(s): I10 - Essential (primary) hypertension Category: Medical Plan: Resting blood pressure is 114/80, slightly above goal of less than 140/80. Heart rate is 64. Continue current treatment regimen. Low-sodium diet and routine exercise encouraged. Follow-up in 1 month or sooner with symptoms or concerns. Verbalized understanding and agreed with treatment plan.
[2024-07-23 09:58] VITALS: BP 139/84; PULSE 64; RESP 16; TEMP 36.8; O2SAT 99; BMI 38.3
--- OUTSIDE RECORDS SUMMARY | 2024-07-23 10:14 | XMS_ITS | Clinical Summary ---
Author Organization [facility] Facility Address [address] [place] [id number] Care Team Providers Care Appraiser Auditor Name Role Phone Nancy Marlow CNP Primary Care Provider [phone] Social History Tobacco Use Types Packs/Day Years Used Date Smoking Tobacco: Never Assessed Sex and Gender Information Value Date Recorded Sex Assigned at Not on file Legal Sex Male 11:07 AM EDT Gender Identity Not on file Sexual Orientation Not on file Plan of Treatment Health Maintenance Due Date Last Done Comments Hepatitis B Vaccine (1 of 3 - 19+ 3-dose series) 02/09 Pneumococcal Vaccine: Peds ( 0 to 5 Years) and At-Risk Patients (6 to 49 Years) (1 of 2 - PCV) 02/09/2003 Influenza Vaccine (Season Ended) 2024 Insurance [facility] Care Teams Appraiser Auditor Relationship Specialty Start Date End Date Nancy Marlow CNP [address], [place] [id number] PCP - General 12/18/23
[2024-07-23 10:30] VITALS: BP 114/80; PULSE 64
== END 2024-07-23 10:33 | disposition home or self-care (01) ==
LOC: HO.HMCFM 09:52
PROVIDERS: PCP Nurse Practitioner Family; Visit Provider Nurse Practitioner Family
DX: I10 Essential (primary) hypertension (principal)

== ENCOUNTER → 2024-07-23 09:52 | Outpatient (BNVA) | payer OTHER, SELFPAY | PROVIDERS: PCP Nurse Practitioner Family; Visit Provider Nurse Practitioner Family ==

== ENCOUNTER 2024-08-27 11:46 | Outpatient (AMB) | payer OTHER, SELFPAY ==
--- NOTE | 2024-08-27 11:49 | A.OFFPC_ITS ---
Vital Signs 08/27/24 11:54 Height 5 ft 10 in Weight 268 lb 6 oz BMI 38.5 BP 130/88 Blood Pressure Location Lt brachial Position Sitting Respiration 15 Pulse 77 Pulse Source Pulse Oximeter Temp 98.2 F Temp Source Temporal Artery Scan Pulse Oximetry (%) 97 Oxygen Delivery Method Room Air Intake Visit Reasons: 2 wks HTN Intake Note: Volodymyr presents in the office today for a two week follow to hypertension. Allergies No Known Allergies Allergy (Verified 08/27/24 11:58) Medication List - Last Reconciled 08/27/24 by Nancy Marlow CNP carvedilol 6.25 mg PO BID sacubitril-valsartan 97-103 mg (Entresto) 1 tab PO BID 30 days Tobacco use date assessed: 08/27/24 Dental Screening Dental Screen Date: 08/27/24 Did you have a dental visit in the last 12 months?: No Did you have a dental problem in the last 6 months where you did not have access to dental care?: No Was dental information given to patient?: Patient has dentist HPI HPI Comments History of Present Illness Details 39-year-old male presents for hypertensi on follow-up. He admits to taking her medications as prescribed without adverse reactions. He has been making healthy dietary choices. He has not been exercising but intends to start soon. He has a follow-up with his cheese wrapper later this month. He offers no complaints and denies acute symptoms at this time. [facility] Medical History (Updated 04/07/24 @ 15:47 by Nancy Marlow CNP) CHF (congestive heart failure) High blood pressure Family History Father High blood pressure Paternal Grandfather High blood pressure Diabetes Brother High blood pressure Other Clotting disorder Social History (Updated 08/27/24 @ 11:53 by Jeanette Nieves MA) Housing: Apartment Alcohol intake: never Patient Tobacco Use Status: Former Tobacco user Cigarette Packs Per Day: 1 Cigarettes Per Day: 20 Years Smoked: 8-10 years e-Cigarette/Vaping Use: Never Used Second Hand Smoke Exposure: No service: No Current occupational status: employed 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 1. Little interest or pleasure in doing things: not at all 2. Feeling down, depressed, or hopeless: not at all 3. Trouble falling or staying asleep, or sleeping too much: not at all 4. Feeling tired or having little energy: not at all 5. Poor appetite or overeating: not at all 6. Feeling bad about yourself - or that you are a failure or have let yourself or your family down: not at all 7. Trouble concentrating on things, such as reading the newspaper or watching television: not at all 8. Moving or speaking so slowly that other people could have noticed. Or the opposite - being so fidgety or restless that you have been moving around a lot more than usual: not at all 9. Thoughts that you would be better off or of hurting yourself in some way : not at all Total score: 0 Depression Screening Interpretation: Negative Depression Screening Done: Yes 07499 - PHQ-9 Billing: Yes Source: Developed by Drs. Lalito Briggs, Shayy Feldman, Tony Lizama and colleagues, with an educational joe from [employer]. Thrive Questionnaire Date Thrive assessed: 08/27/24 I am a: Patient What is your living situation today?: I have a steady place to live Within the past 12 months, did the food you bought not last and you didn't have the money to get more?: Never true Within the past 12 months, did you worry whether your food would run out before you got money to buy more?: Never true Do you have trouble paying for medicines?: No Do you have trouble getting transportation to medical appointments?: No Do you have trouble paying your heating and electricity bill?: No Do you have trouble taking care of your child, family member or friend?: No Do you have trouble with day-to-day activities such as bathing, preparing meals, shopping, managing finances, etc.?: No Are you currently unemployed and looking for a job?: No Are you interested in more education?: I choose not to answer this question Please select the resources that you would like help with: None Currently or been in a relationship where the following occur: No concerns reported THRIVE Score: 0 AUDIT C Alcohol Use Questionnaire (AUDIT-C) 1. How often do you have a drink containing alcohol?: Never Total Score: 0 ROHITH-7 AMB Questionnaire ROHITH-7 Date ROHITH - 7 assessed: 08/27/24 Source: Developed by Drs. Lalito Briggs, Shayy Feldman, Tony Lizama and colleagues, with an educational joe from [employer]. ROHITH-7 Assessment Billing ROHITH-7 Assessment Tool: ROHITH-7 Assessment 12827 Review of Systems Const Details: Const Denies chills, Denies fatigue, Denies fever(s), Denies headache(s) and Denies weakness ENT Denies dizziness and Denies headache(s) Card Denies chest pain, Denies lightheadedness, Denies dyspnea and Denies other (Palpitations) Resp Denies cough, Denies dyspnea, Denies wheezing and Denies other ( shortness of breath) GI Denies abdominal pain, Denies melena, Denies hematochezia, Denies change in bowel habits, Denies dyspepsia and Denies nausea Denies hematuria and Denies dysuria Musc Denies abnormal gait, Denies myalgias, Denies arthralgias, Denies numbness and Denies tingling Skin/Breast Denies rash, Denies unusual bruising and Denies wounds Neuro Denies abnormal gait, Denies dizziness, Denies headache(s), Denies memory loss, Denies numbness, Denies Sensory deficit (Neuro), Denies tingling and Denies weakness Psych Denies anxiety, Denies depression, Denies memory loss Endo Denies cold intolerance, Denies fatigue, Denies heat intolerance, Denies polydipsia and Denies polyuria Aller/Immun Denies wheezing Physical exam (Primary Care) Tobacco/Smoking Status: Tobacco use Status Tobacco use date assessed 07/23/24 08/27/24 11:50 Patient Tobacco Use Status Former Tobacco user 08/27/24 11:53 e-Cigarette/Vaping Use Never Used 08/27/24 11:53 Depression Screening Interpretation: Negative Thrive Assessment: Date of Thrive Assessment Date Thrive assessed 07/09/24 08/27/24 11:50 Currently or been in a relationship where the following occur: No concerns reported Const Other: General: no acute distress and well developed Nutritional Appearance: well nourished Orientation/consciousness: patient oriented x3 [facility] Head: Yes normocephalic and Yes atraumatic Eyes General: appearance normal, both eyes and all related structures Pupils: Equal, round and reactive pupils present EOM: EOMs intact bilaterally Resp Effort & Inspection: normal respiratory effort Auscultation: clear to auscultation bilaterally Cardio Rate: regular rate Rhythm: regular rhythm Heart sounds: S1 normal heart sound present, S2 normal heart sound present, no gallops, no murmurs and no rubs GI Palpation (GI): No Abdominal aortic bruit present, Soft to palpation, nontender, No hepatosplenomegaly present and No Rebound tenderness present Auscultation: normal bowel sounds General: Yes no CVA tenderness Back/Spine/Pelvis Back: no CVA tenderness Cervical Spine: cervical ROM normal and No Cervical spine tenderness Thoracic/Lumbar Spine: thoraco-lumbar ROM normal, No pain with thoraco-lumbar ROM, No thoracic spinal tenderness and No lumbar spinal tenderness Extrem General: Yes normal to inspection, No edema and No calf tenderness Skin General: warm and dry. Normal skin color. Normal skin turgor Neuro General: patient oriented x3, gait normal and no focal neuro deficit Cranial nerves: Yes Equal, round and reactive pupils present Cognition (Neuro): normal cognition Gait exam (Neuro): Normal gait present Sensory Exam: No Sensory deficit (Neuro) Psych Appearance: grossly normal Affect: normal affect Attitude: cooperative Thought process: Normal thought process present Coding Level of Care Code Est Pt Level 3 (08368) Diagnoses High blood pressure I10 Additional Codes ROHITH-7 Assessment Billing - ROHITH-7 Assessment Tool: ROHITH-7 Assessment 91776 ([id number]) PHQ-9 - 01797 - PHQ-9 Billing: Yes ([id number]) Assessment & Plan Assessment & Plan (1) High blood pressure: Code(s): I10 - Essential (primary) hypertension Category: Medical Plan: Resting blood pressure is 130/88, slightly above goal of less than 130/80. Continue current treatment regimen. Low-sodium diet and routine exercise encouraged. Follow-up with cardiology as planned. Return in 2 months or sooner with symptoms or concerns. Verbalized understanding and agreed with treatment plan.
[2024-08-27 11:54] VITALS: BP 130/88; PULSE 77; RESP 15; TEMP 36.8; O2SAT 97; BMI 38.5
--- OUTSIDE RECORDS SUMMARY | 2024-08-27 12:38 | XMS_ITS | Data Portability ---
Author Organization [place] - [facility], Allergy Address [address] [address] Assessment Encounter Date Assessment Date Assessment LastModified [...] Organization Details Recorded Time Bleeding from nose [id number] Active 2023 HOLLY CAMPOS MD 100 [facility] [address], [place], [address], [place] - [facility] 4 09:03:58 Hypertensive urgency [id number] Active 2023 HOLLY CAMPOS MD 100 [facility] [address], [place], [address], [place] - [facility] 4 09:16:18 Problem Notes None recorded. [...] Updated DateTime 09/22/2023 177.8 cm 40.2 kg/m2 116687.86 g Joanne Briggs [place] - [facility] 09/22/2023 09:04:15 Social History None recorded. Functional Status None recorded. Mental Status None recorded. Family History Nothing Reported. Medical History No medical history recorded. Past Encounters Encounter ID Performer Location Encounter Start Date Encounter Closed Date Diagnosis/Indication Diagnosis SNOMED-CT Code Diagnosis ICD10 Code Diagnosis Note [id number] HOLLY CAMPOS MD [facility] [address] [address] 09/22/2023 08:55:29 09/22/2023 09:21:22 Bleeding from nose [id number] R04.0 Likely related to significan t hypertensi on. He will work with a primary care provider when he establishe s to help better manage this likely causal agent for his epistaxis Hypertensive urgency [id number] I16.0 Health Concerns Section Related Observation LastModified by Organization Detai ls LastModified Time None Recorded Concern Status LastModified by Organization Details LastModified Time None Recorded Advance Directives Directive None Recorded Payers Insurance Date Sequence Insurance Name Policy Number Policy Pearl Covered Member ID Pearl Member ID Guarantor Name 09/19/[address] [facility] [id number] 1 Volodymyr Castro [id number] Volodymyr Castro Notes Date Note Type Note Provider Name and Address Organization Details Recorded Time 09/22/2023 text/html epistaxis RIGHT sidedsetting of HTNsmaller episodes started Friday and then severe was last Fri 6/een in ER with placement of nasal balloonBP was 223/172 in ER and was started on amlodipineno recent nasal traumano use of anticoagulants HOLLY CAMPOS MD [address] [place] [address], [phone], [facility] - [facility] 09/22/2023 09:16:40
== END 2024-08-27 12:10 | disposition home or self-care (01) ==
LOC: HO.HMCFM 11:47
PROVIDERS: PCP Nurse Practitioner Family; Visit Provider Nurse Practitioner Family
DX: I10 Essential (primary) hypertension (principal)

== ENCOUNTER → 2024-08-27 11:46 | Outpatient (BNVA) | payer OTHER, SELFPAY | PROVIDERS: PCP Nurse Practitioner Family; Visit Provider Nurse Practitioner Family | DX: I10 Essential (primary) hypertension (principal) | CPT/HCPCS: 96127 ==

== ENCOUNTER 2024-11-01 10:39 | Outpatient (AMB) | payer OTHER, SELFPAY ==
--- NOTE | 2024-11-01 10:42 | MHC.PC.OV ---
Vital Signs 11/01/24 10:45 Height 5 ft 10 in Weight 260 lb 4 oz BMI 37.3 BP 118/60 Blood Pressure Location Lt brachial Position Sitting Respiration 16 Pulse 62 Pulse Source Pulse Oximeter Temp 98.6 F Temp Source Temporal Artery Scan Pulse Oximetry (%) 97 Oxygen Delivery Method Room Air Intake Visit Reasons: 2 mos HTN Intake Note: Volodymyr presents in the office today for a 2 month follow up for hypertension. Allergies No Known Allergies Allergy (Verified 11/01/24 10:51) Medication List - Last Reconciled 11/01/24 by Nancy Marlow CNP carvedilol 6.25 mg PO BID empagliflozin (Jardiance) 10 mg PO QAM sacubitril-valsartan 97-103 mg (Entresto) 1 tab PO BID 30 days Tobacco use date assessed: 11/01/24 Dental Screening Dental Screen Date: 11/01/24 Did you have a dental visit in the last 12 months?: Yes Did you have a dental problem in the last 6 months where you did not have access to dental care?: No Was dental information given to patient?: Patient has dentist HPI HPI Comments History of Present Illness Details 39-year-old male presents for hypertension follow-up. He admits to taking her medications as prescribed without adverse reactions. He has been making healthy dietary choices, including low-sodium. He has been exercising routinely. He offers no complaints and denies acute symptoms at this time. [facility] Medical History (Updated 04/07/24 @ 15:47 by Nancy Marlow CNP) CHF (congestive heart failure) High blood pressure Family History Father High blood pressure Paternal Grandfather High blood pressure Diabetes Brother High blood pressure Other Clotting disorder Social History (Updated 08/27/24 @ 11:53 by Jeanette Nieves MA) Housing: Apartment Alcohol intake: never Patient Tobacco Use Status: Former Tobacco user Cigarette Packs Per Day: 1 Cigarettes Per Day: 20 Years Smoked: 8-10 years e-Cigarette/Vaping Use: Never Used Second Hand Smoke Exposure: No service: No Current occupational status: employed 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 Current occupational exposures/hazards: No Cognitive needs: No Hearing needs: No Vision needs: Yes Questionnaire Thrive Questionnaire Date Thrive assessed: 07/09/24 I am a: Patient What is your living situation today?: I have a steady place to live Within the past 12 months, did the food you bought not last and you didn't have the money to get more?: Never true Within the past 12 months, did you worry whether your food would run out before you got money to buy more?: Never true Do you have trouble paying for medicines?: No Do you have trouble getting transportation to medical appointments?: No Do you have trouble paying your heating and electricity bill?: No Do you have trouble taking care of your child, family member or friend?: No Do you have trouble with day-to-day activities such as bathing, preparing meals, shopping, managing finances, etc.?: No Are you currently unemployed and looking for a job?: No Are you interested in more education?: I choose not to answer this question Please select the resources that you would like help with: None Currently or been in a relationship where the following occur: No concerns reported THRIVE Score: 0 ROHITH-7 AMB Questionnaire ROHITH-7 Date ROHITH - 7 assessed: 08/27/24 Source: Developed by Drs. Lalito Briggs, Shayy Feldman, Tony Lizama and colleagues, with an educational joe from [employer]. Review of Systems Const Details: Const Denies chills, Denies fatigue, Denies fever(s), Denies headache(s) and Denies weakness ENT Denies dizziness and Denies headache(s) Card Denies chest pain, Denies lightheadedness, Denies dyspnea and Denies other (Palpitations) Resp Denies cough, Denies dyspnea, Denies wheezing and Denies other ( shortness of breath) GI Denies abdominal pain, Denies melena, Denies hematochezia, Denies change in bowel habits, Denies dyspepsia and Denies nausea Denies hematuria and Denies dysuria Musc Denies abnormal gait, Denies myalgias, Denies arthralgias, Denies numbness and Denies tingling Skin/Breast Denies rash, Denies unusual bruising and Denies wounds Neuro Denies abnormal gait, Denies dizziness, Denies headache(s), Denies memory loss, Denies numbness, Denies Sensory deficit (Neuro), Denies tingling and Denies weakness Psych Denies anxiety, Denies depression, Denies memory loss Endo Denies cold intolerance, Denies fatigue, Denies heat intolerance, Denies polydipsia and Denies polyuria Aller/Immun Denies wheezing Physical exam (Primary Care) Tobacco/Smoking Status: Tobacco use Status Tobacco use date assessed 08/27/24 08/27/24 11:58 Patient Tobacco Use Status Former Tobacco user 08/27/24 11:53 e-Cigarette/Vaping Use Never Used 08/27/24 11:53 Thrive Assessment: Date of Thrive Assessment Date Thrive assessed 07/09/24 10/22/24 14:04 Currently or been in a relationship where the following occur: No concerns reported Const Other: General: no acute distress and well developed Nutritional Appearance: well nourished Orientation/consciousness: patient oriented x3 HENMT Head: Yes normocephalic and Yes atraumatic Eyes General: appearance normal, both eyes and all related structures Pupils: Equal, round and reactive pupils present EOM: EOMs intact bilaterally Resp Effort & Inspection: normal respiratory effort Auscultation: clear to auscultation bilaterally Cardio Rate: regular rate Rhythm: regular rhythm Heart sounds: S1 normal heart sound present, S2 normal heart sound present, no gallops, no murmurs and no rubs GI Palpation (GI): No Abdominal aortic bruit present, Soft to palpation, nontender, No hepatosplenomegaly present and No Rebound tenderness present Auscultation: normal bowel sounds General: Yes no CVA tenderness Back/Spine/Pelvis Back: no CVA tenderness Cervical Spine: cervical ROM normal and No Cervical spine tenderness Thoracic/Lumbar Spine: thoraco-lumbar ROM normal, No pain with thoraco-lumbar ROM, No thoracic spinal tenderness and No lumbar spinal tenderness Extrem General: Yes normal to inspection, No edema and No calf tenderness Skin General: warm and dry. Normal skin color. Normal skin turgor Neuro General: patient oriented x3, gait normal and no focal neuro deficit Cranial nerves: Yes Equal, round and reactive pupils present Cognition (Neuro): normal cognition Gait exam (Neuro): Normal gait present Sensory Exam: No Sensory deficit (Neuro) Psych Appearance: grossly normal Affect: normal affect Attitude: cooperative Thought process: Normal thought process present Coding Level of Care Code Est Pt Level 3 (17535) Diagnoses High blood pressure I10 Laboratory tests ordered as part of a complete physical exam (CPE) Z00.00 Assessment & Plan Assessment & Plan (1) High blood pressure: Code(s): I10 - Essential (primary) hypertension Category: Medical Plan: Blood pressure is 118/60, within goal of less than 130/80. Continue current treatment regimen. Low-sodium diet encouraged. Fast for 10-12 hours, may drink water, and performed lipid panel blood work a few days before next visit. Follow-up in 4 months for an extended physical exam, hypertension, and labs review. Return sooner with symptoms or concerns. Verbalized understanding and agreed with the plan. (2) Laboratory tests ordered as part of a complete physical exam (CPE): Code(s): Z00.00 - Encounter for general adult medical examination without abnormal findings Category: Medical Plan: Fasting labs ordered as part of a complete physical exam. Advised to fast for at least 10 hours before getting labs drawn. May drink water Verbalized understanding and agreed with treatment plan. Orders: Orders Comprehensive [place]. Panel Fast 3 Months Z00.00 - Encounter for general adult medical examination without abnormal findings Lipid Panel 3 Months Z00.00 - Encounter for general adult medical examination without abnormal findings Vitamin D 25-OH Total 3 Months Z00.00 - Encounter for general adult medical examination without abnormal findings Complete Blood Count Auto Diff 3 Months Z00.00 - Encounter for general adult medical examination without abnormal findings TSH reflex Free T4 3 Months Z00.00 - Encounter for general adult medical examination without abnormal findings PSA, Ultra Sensitive 3 Months Z00.00 - Encounter for general adult medical examination without abnormal findings
[2024-11-01 10:45] VITALS: BP 118/60; PULSE 62; RESP 16; TEMP 37; O2SAT 97; BMI 37.3
--- OUTSIDE RECORDS SUMMARY | 2024-11-01 11:28 | XMS_ITS | Encounter Summary ---
Demographics Address [address] [place] [address] Mobile Phone Email Address Preferred Language Yoruba Marital Status Single Bahai Affiliation Unknown Race White Ethnic Group Not or Lati no Author Organization [facility] Address [address] [place] [address] [place] [address] Phone Care Team Providers Care Pastry Finisher Name Role Phone Nancy Marlow PRODUCE SERVICE TEAM MEMBER Primary Care Provider Mya vailable Encounter Details Date Type Department Care Team (Late st Contact Info) Description 12/16/2023 Procedure Pass Echo Lab [facility] [address] [place] [address] Social History Tobacco Use Types Packs/Day Years Used Date Smoking Tobacco: Former Cigarettes Education Answer Date Recorded Are you interested in more education? Not on pauline e 12/05/2023 Are you concerned about learning? Not on file 12/05/2023 No 12/05/2023 No 12/05/2023 Digital Access Answer Date Recorded No 12/05/2023 No 12/05/2023 Reliable internet access at home? Not on file 12/05/2023 Device with a working camera? Not on file Intimate Partner Violence Answer Date R ecorded Are you denied basic needs s uch as food, clothing, or medical care? No 12/07/2023 In the past 12 months have y ou been in a relationship with a person who hurts, threatens, or tries to control you? No 12/07/2023 Are you denied basic needs s uch as food, clothing, or medical care? No 12/07/2023 In the past 12 months have y ou been in a relationship with a person who hurts, threatens, or tries to control you? No 12/07/2023 Sex and Gender Information Value Date Recorded Sex Assigned at Male 12/07/2023 6:46 AM EDT Legal Sex Male 10:23 AM EDT Gender Identity Male 12/07/2023 6:46 AM EDT Sexual Orientation Don't know 12/07/2023 6: 46 AM EDT documented as of this encounter Plan of Treatment Upcoming Encounters Date Type Department Care Team (Late st Contact Info) Description 04/05/2025 11:40 AM EST Office Visit [facility] [address] [place] [address] [address]rd Floor, [address] [place] [address] Calvin Trevino MD [address] [place] [address] documented as of this encounter Visit Diagnoses Not on filedocumented in this encounter Care Teams Pastry Finisher Relationship Specialty Start Date End Date Nancy Marlow NP PCP - General Nurse Practitioner 12/12/23 documented as of this encounter Additional Source Comments The information contained in this document represents components of the legal health record. It is not the complete legal health record.[facility]
--- OUTSIDE RECORDS SUMMARY | 2024-11-01 11:28 | XMS_ITS | Clinical Summary ---
Author Organization [facility] Address [address] [place] [address] Care Team Providers Care Binding Cementer French Cord Name Role Phone Nancy Marlow CNP Primary Care Provider [phone] Social History Tobacco Use Types Packs/Day Years [...] of 2 - PCV) 02/09/2003 Influenza Vaccine (#1) 2024 Insurance [facility] Care Teams Binding Cementer French Cord Relationship Specialty Start Date End Date Nancy Marlow CNP [address] [place], [place] [id number] PCP - General 12/18/23
== END 2024-11-01 11:01 | disposition home or self-care (01) ==
LOC: HO.HMCFM 10:39
PROVIDERS: PCP Nurse Practitioner Family; Visit Provider Nurse Practitioner Family
DX: I10 Essential (primary) hypertension (principal); Z00.00 Encounter for general adult medical examination without abnormal findings

== ENCOUNTER 2025-03-08 07:01 | Outpatient (REF) | payer OTHER, SELFPAY ==
--- OUTSIDE RECORDS SUMMARY | 2025-03-08 07:04 | XMS_ITS | Encounter Summary ---
Demographics Address [address] [place] [address] Mobile Phone Email Address Preferred Language Malay Marital Status Single Jewish Affiliation Unknown Race White Ethnic Group Not or Lati no Author Organization [facility] Address [address] [place] [address] [place] [address] Phone Care Team Providers Care Play Reader Name Role Phone Ele Nancy Hilario COMMERCIAL CONSTRUCTION ESTIMATOR Primary Care Provider [phone] Encounter Details Date Type Department Care Team (Late st Contact Info) Description 12/16/2023 Procedure Pass Echo Lab [place] [place] [address] Social History Tobacco Use Types Packs/Day Years [...] Description 04/05/2025 11:40 AM EST Office Visit [facility] [address] [place] [address] [address]rd Floor, [address] [place] [address] Calvin Trevino MD [address] [place] [address] documented as of this encounter Visit Diagnoses Not on filedocumented in this encounter Care Teams Play Reader Relationship Specialty Start Date End Date Nancy Marlow NP [address] [place] [address] PCP - General Nurse Practitioner 12/12/23 documented as of this encounter Additional Source Comments The information contained in this document represents components of the legal health record. It is not the complete legal health record.[facility]
--- OUTSIDE RECORDS SUMMARY | 2025-03-08 07:04 | XMS_ITS | Clinical Summary ---
Demographics Address [address] [place] [address] Mobile Phone Email Address Preferred Language Danish Marital Status Single Advent Affiliation Unknown Race White Ethnic Group Not or Lati no Author Organization [facility] Address [address] [place] [address] Phone Care Team Providers Care Nuclear Fuel Enrichment Technician Name Role Phone EleNancy shell Yanelis SUCTION PLATE ROLLER HAND Primary Care Provider [phone] Allergies No known active allergies Medications carvedilol (COREG) 6.25 MG tablet Take 1 tablet (6.25 mg total) by mouth 2 (two) times a day with meals. 180 tablet 3 12/16/2023 Active sacubitriL-valsa rtan (ENTRESTO) 97-103 mg per tablet Take 1 tablet by mouth 2 (two) times a day. Active empagliflozin (JARDIANCE) 10 mg tablet Take 1 tablet (10 mg total) by mouth daily. 90 tablet 3 09/07/2024 Active Active Problems Problem Noted Date Diagnosed Date Hypertensive emergency 12/08/2023 Assessment & Plan (09/07/2024 4:39 PM EDT): Pt continues to have elevated blood pressure. At last visit, it was mentioned that the pt would follow-up with nephrology to evaluate for secondary causes of hypertension. Pt did not hear from nephrology. Will send a new referral. Pt is tolerating GDMT well. Obesity 12/08/2023 HFrEF (heart failure with reduced ejection fract ion) 12/07/2023 Assessment & Plan (09/07/2024 4:42 PM EDT): Pt is currently managed on carvedilol, Jardiance, and Entresto. He is tolerating these medications well. His Entresto was increased by his PCP. Pt was hospitalized in 2023 with reduced EF and hypertensive emergency. Pt was diuresed and lost 50lbs. Repeat Echo shows a return to normal systolic function at 60-65%. Will have pt continue current management and follow-up in 6 months. Plan: Continue carvedilol Continue Jardiance Continue Entresto Follow-up in 6 months Epistaxis 09/22/2023 Resolved Problems Problem Noted Date Diagnosed Date Resolved Date Malignant hypertension 12/07/202312/08 Assessment & Plan (12/07/2023 4:46 PM EDT): Social History Tobacco Use Types Packs/Day Years Used Date Smoking Tobacco: Former Cigarettes Tobacco Cessation:Counseling Given: Not Answered Education Answer Date Recorded Are you interested [...] Don't know 12/07/2023 6: 46 AM EDT Last Filed Vital Signs Vital Sign Reading Time Taken Comments Blood Pressure 148/72 09/07/2024 3:30 PM EDT Pulse 86 09/07/2024 3:30 PM EDT Temperature 37 C (98.6 F) 12/11/2023 12:44 PM EDT Respiratory Rate 18 12/11/2023 12:44 PM EDT Oxygen Saturation 97% 09/07/2024 3:30 PM EDT Inhaled Oxygen Concentration - - Weight 124.7 kg (275 lb) 09/07/2024 3:30 PM EDT Height 177.8 cm (5' 10 ) 09/07/2024 3:30 PM EDT Body Mass Index 39.46 09/07/2024 3:30 PM EDT Plan of Treatment Upcoming Encounters Date Type Department Care Team (Late st Contact Info) Description 04/05/2025 11:40 AM EST Office Visit [facility] [address] [place] [address] [address] Floor, [address] [place] [address] Calvin Trevino MD [address] [place] [phone] [email or web address] Health Maintenance Due Date Last Done Comments Adult Td,Tdap Booster 1984 LIPID PANEL 1984 DEPRESSION SCREENING 1996 SMOKING Hx and SMOKELESS TOBACCO SCREENING 02/09/1997 HEPATITIS C SCREENING 02/09/2002 PNEUMOCOCCAL VACCINES (0-49 years) (1 of 2 - PCV) 02/09/2003 INFLUENZA VACCINE (#1) 2024 COVID-19 VACCINE (1 - 2024-2 6 season) 2024 BLOOD PRESSURE 03/09/2025 09/07/2024 SCREENING FOR DIABETES 12/10/2026 4, 12/09/2023 HIV ONE-TIME SCREENING (18-6 5 YEARS) Completed 12/09/2023 HEPATITIS A VACCINES Aged Out No long er eligible based on patient's age to complete this topic HIB VACCINES Aged Out No longer eligi ble based on patient's age to complete this topic MENINGOCOCCAL VACCINES (ACWY) Aged Out No longer eligible based on patient's age to complete this topic MENINGOCOCCAL VACCINES (B) Aged Out N o longer eligible based on patient's age to complete this topic Medical Devices Not on file Insurance [facility] [place] [id number] [place] [address] [place] [address] [facility] [place] [address] [place] [address] [place] [address] Advance Directives For more information, please contact: [phone] (9AM - 5PM [facility], Friday-Friday) Documents on File Type Date Recorded Patient Pairer Expl anation Healthcare Proxy 12/12/2023 2:18 PM Healthcare Proxy 12/10/2023 8:57 AM Health care Proxy * Full Code (Latest Code Status on File) Date Activated Date Inactivated Comments 12/07/2023 4:41 PM Question Answer Comments Code Status Confirmed With: Patient Care Teams Nuclear Fuel Enrichment Technician Relationship Specialty Start Date End Date Nancy Marlow NP [address] [place] [address] PCP - General Nurse Practitioner 12/12/23 Additional Source Comments The information contained in this document represents components of the legal health record. It is not the complete legal health record.[facility]
--- OUTSIDE RECORDS SUMMARY | 2025-03-08 07:04 | XMS_ITS | Encounter Summary ---
Demographics Address [address] [place] [address] Mobile Phone Email Address Preferred Language Albanian Marital Status Single Yarsani Affiliation Unknown Race White Ethnic Group Not or Lati no Author Organization [facility] Address [address] [place] [address] [place] [address] Phone Care Team Providers Care Metal Shaping Machine Operator Name Role Phone Pcp, Unknown Primary Care Provider Nancy Kerns FORMAL WAITER/WAITRESS Primary Care Provider [phone] Nancy Marlow FORMAL WAITER/WAITRESS Primary Care Provider [phone] Encounter Details Date Type Department Care Team (Late st Contact Info) Description 12/07/2023 Procedure Pass [facility] [address] [place] [address] Social History Tobacco Use Types Packs/Day Years [...] AM EDT documented as of this encounter Functional Status * Calculated C-SSRS Risk Score (Lifetime/Recent) Answer Date of Assessment Author No Risk Indicated 12/07/2023 6:16 AM EDT Juan Bose RN * [place] Suicide Severity Rating Scale (Screener/Recent Self-Report) Question Answer Date of Assessment Author 1. Wish to be (Past 1 Month) No 024 6:16 AM EDT Juan Bose RN 2. Non-Specific Active Suici siobhan Thoughts (Past 1 Month) No 12/07/2023 6:16 AM EDT Manolo Bose RN 6. Suicidal Behavior (Lifetime) No 6:16 AM EDT Juan Bose RN documented as of this encounter Plan of Treatment Upcoming Encounters Date Type Department Care Team (Late st Contact Info) Description 04/05/2025 11:40 AM EST Office Visit [facility] [address] [place] [address] [address]rd Floor, [address] [place] [address] Calvin Trevino MD [address] [place] [address] [email or web address] documented as of this encounter Visit Diagnoses Not on filedocumented in this encounter Care Teams Metal Shaping Machine Operator Relationship Specialty Start Date End Date Pcp, Unknown PCP - General 12/07/23 12/10/23 Nancy Marlow NP [address] [place] [address] PCP - General Nurse Practitioner 12/11/23 12/11/23 Nancy Marlow NP [address] [place] [address] PCP - General Nurse Practitioner 12/12/23 documented as of this encounter Additional Source Comments The information contained in this document represents components of the legal health record. It is not the complete legal health record.[facility]
--- OUTSIDE RECORDS SUMMARY | 2025-03-08 07:04 | XMS_ITS | Data Portability ---
Author Organization [place] [facility], [facility] Address [address] [place] [phone] Assessment Encounter Date Assessment Date Assessment LastModified [...] Organization Details Recorded Time Bleeding from nose [id number] Active 2023 HOLLY CAMPOS MD [address] [address], [place], [phone], [place] [facility] 4 09:03:58 Hypertensive urgency [id number] Active 2023 HOLLY CAMPOS MD [address] [facility] [address], [place], [address], [facility] - [facility] 4 09:16:18 Problem Notes None recorded. [...] Updated DateTime 09/22/2023 177.8 cm 40.2 kg/m2 745558.86 g Joanne Bowensareli [place] [facility] 09/22/2023 09:04:15 Social History None recorded. Functional Status None recorded. Mental Status None recorded. Family History Nothing Reported. Medical History No medical history recorded. Past Encounters Encounter ID Performer Location Encounter Start Date Encounter Closed Date Diagnosis/Indication Diagnosis SNOMED-CT Code Diagnosis ICD10 Code Diagnosis IMO Codes Diagnosis Note [id number] HOLLY CAMPOS MD [facility] [address] [address] 09/22/2023 08:55:29 09/22/2023 09:21:22 Bleeding from nose 887986112 R04.0 Likely related to significan t hypertensi on. He will work with a primary care provider when he establishe s to help better manage this likely causal agent for his epistaxis Hypertensive urgency [phone] [id number] I16.0 Health Concerns Section Related Observation LastModified by Organization Detai ls LastModified Time None Recorded Concern Status LastModified by Organization Details LastModified Time None Recorded Advance Directives Directive None Recorded Payers Insurance Date Sequence Insurance Name Policy Number Policy Pearl Covered Member ID Pearl Member ID Guarantor Name 09/19/2023 1 [facility] [id number] 1 Volodymyr Castro [id number] Volodymyr Castro Notes Date Note Type Note Provider Name and Address Organization Details Recorded Time 09/22/2023 text/html ROS as noted in the HPI epistaxis RIGHT sidedsetting of HTNsmaller episodes started Friday and then severe was last Frieen in ER with placement of nasal balloonBP was 223/172 in ER and was started on amlodipineno recent nasal traumano use of anticoagulants HOLLY CAMPOS MD [address] [place] [address], [phone], [facility] - [facility] 09/22/2023 09:16:40
--- OUTSIDE RECORDS SUMMARY | 2025-03-08 07:04 | XMS_ITS | Clinical Summary ---
Author Organization [facility] Address [address] [place] [address] Care Team Providers Care Government Property Inspector Name Role Phone Nancy Marlow CNP Primary Care Provider [phone] Social History Tobacco Use Types Packs/Day Years [...] PCV) 02/09/2003 Influenza Vaccine (#1) 2024 Insurance [facility] Care Teams Government Property Inspector Relationship Specialty Start Date End Date Nancy Marlow CNP [address] [place], [place] [phone] PCP - General 12/18/23
--- OUTSIDE RECORDS SUMMARY | 2025-03-08 07:04 | XMS_ITS | Encounter Summary ---
Demographics Address [address] [place] [address] Mobile Phone Email Address Preferred Language Yak[place] Marital Status Single Synagogue Affiliation Unknown Race White Ethnic Group Not or Lati no Author Organization [facility] Address [address] [place] [address] [place] [phone] Phone Care Team Providers Care Ground Crew Supervisor Name Role Phone Pcp, Unknown Primary Care Provider Nancy Kerns DRY STARCH OPERATOR Primary Care Provider [phone]- [phone] Nancy Marlow DRY STARCH OPERATOR Primary Care Provider [phone]- [phone] Encounter Details Date Type Department Care Team (Late st Contact Info) Description 12/08/2023 Procedure Pass [facility], Ct Scan - [address] [address] Social History Tobacco Use Types Packs/Day Years [...] Description 04/05/2025 11:40 AM EST Office Visit [facility] [address], [address] [place] [address] Calvin Trevino MD [address] [place] [id number] [email or web address] documented as of this encounter Visit Diagnoses Not on filedocumented in this encounter Care Teams Ground Crew Supervisor Relationship Specialty Start Date End Date Pcp, Unknown PCP - General 12/07/23 12/10/23 Nancy Marlow NP [address] [place] [address] PCP - General Nurse Practitioner 12/11/23 12/11/23 Nancy Marlow NP [address] [place] [address] PCP - General Nurse Practitioner 12/12/23 documented as of this encounter Additional Source Comments The information contained in this document represents components of the legal health record. It is not the complete legal health record.[facility]
[2025-03-08 07:11] LABS: MANUAL DIFF FLAG NO
[2025-03-08 07:28] LABS: Hematocrit 52.7 % (42.0-52.0); Hemoglobin 17.8 g/dl (14.0-18.0); Imm Gran Abs Auto 0.18 X10*3/uL (0.00-0.03); Imm Gran Pct Auto 2.0 % (0.0-0.4); Lymphocytes Absolute Auto 1.7 X10*3/uL (1.2-4.9); Mean Corpuscular HGB Conc 33.8 g/dl (31.0-36.0); Mean Corpuscular Hemoglobin 29.4 pg (27.0-33.0); Mean Corpuscular Volume 87.0 fL (80.0-98.0); NRBC Abs Auto 0.000 X10*3/uL (0.0-0.012); NRBC Pct Auto 0.0 /100WBC (0.0-0.2); Platelet Count 268 X10*3/uL (160-400); Red Blood Count 6.06 X10*6/uL (4.60-5.80); White Blood Count 9.1 X10*3/uL (4.8-10.8)
[2025-03-08 08:12] LABS: Alanine Aminotransferase 30 U/L (0-40); Albumin Level 4.8 g/dL (3.5-5.0); Alkaline Phosphatase 61 U/L (39-117); Anion Gap 9 (12-20); Aspartate Amino Transferase 21 U/L (5-37); Blood Urea Nitrogen 15 mg/dL (9-16); Calcium 10.0 mg/dL (8.4-10.2); Carbon Dioxide 31 mmol/L (22-29); Chloride 105 mmol/L (96-108); Cholesterol 170 mg/dL (<200); Estimated Glomerular Filt Rate > 60; HDL Cholesterol 31 mg/dL (>40); Potassium 5.0 mmol/L (3.3-5.1); Sodium 140 mmol/L (135-145); Total Protein 7.2 g/dL (6.5-8.0); Triglycerides 139 mg/dL (<150)
== END 2025-03-08 07:02 | disposition home or self-care (01) ==
LOC: HO.LAB 07:01
PROVIDERS: PCP Nurse Practitioner Family; Visit Provider Nurse Practitioner Family
DX: Z00.00 Encounter for general adult medical examination without abnormal findings (principal); Z12.5 Encounter for screening for malignant neoplasm of prostate; Z13.21 Encounter for screening for nutritional disorder; Z13.29 Encounter for screening for other suspected endocrine disorder; Z13.0 Encounter for screening for diseases of the blood and blood-forming organs and certain disorders involving the immune mechanism; Z13.6 Encounter for screening for cardiovascular disorders
CPT/HCPCS: 36415; 80053; 80061; 82306; 84153; 84443; 85025

== ENCOUNTER 2025-03-11 10:02 | Outpatient (AMB) | payer OTHER, SELFPAY ==
--- NOTE | 2025-03-11 10:06 | A.OFFPC_ITS ---
Vital Signs 03/11/25 10:19 Height 5 ft 10 in Weight 269 lb 2 oz BMI 38.6 BP 112/70 Blood Pressure Location Lt brachial Position Sitting Respiration 16 Pulse 82 Pulse Source Pulse Oximeter Temp 98 F Temp Source Oral Pulse Oximetry (%) 97 Oxygen Delivery Method Room Air Intake Visit Reasons: 4 mos CPE, HTN, labs Intake Note: patient here for CPE, HTN and labs Tile Presser Required: No Allergies No Known Allergies Allergy (Verified 03/11/25 10:26) Medication List - Last Reconciled 03/11/25 by Nancy Marlow CNP carvedilol 6.25 mg PO BID cholecalciferol (vitamin D3) 1,250 mcg PO QWEEK 8 weeks empagliflozin (Jardiance) 10 mg PO QAM sacubitril-valsartan 97-103 mg (Entresto) 1 tab PO BID 30 days Tobacco use date assessed: 03/11/25 Dental Screening Dental Screen Date: 03/11/25 Did you have a dental visit in the last 12 months?: Yes Did you have a dental problem in the last 6 months where you did not have access to dental care?: No Was dental information given to patient?: Patient has dentist HPI HPI Comments History of Present Illness Details 40-year-old male presents for an extende d physical exam and review of recent He admits to taking his medications as prescribed without adverse reactions. He states that he has been using an old prescription for psoriasis that works well. He was followed by Dermatology and will like a referral to one. Acute issue(s) - None Past Medical History - Congestive Heart Failure (CHF), Essent ial Hypertension, obesity, microalbuminuria, psoriasis, myopia Social History - Former smoker, smoked about 0.5-1pp x 9 yrs, quit over 10 years ago. Does not vape. Does not drink alcohol. Denies recreational drug use - Has been making healthy dietary choice s. Active but does not exercise. Generally sleep well Health maintenance - Last eye exam was in 12/21/2024 with [facility] - Last dental visit was a years ago; enc ouraged to schedule an appointment with his dentist for routine dental care - Last Tdap vaccine was in 02/23/2024 - Has not been vaccinated for the flu th season; declines vaccination Specialists - [facility] Medical History CHF (congestive heart failure) High blood pressure Family History Father High blood pressure Paternal Grandfather High blood pressure Diabetes Brother High blood pressure Other Clotting disorder Social History Housing: Apartment Alcohol intake: never Patient Tobacco Use Status: Former Tobacco user Cigarette Packs Per Day: 1 Cigarettes Per Day: 20 Years Smoked: 8-10 years Packs Per Year: 0 Packs per year/per ci.00 e-Cigarette/Vaping Use: Never Used Second Hand Smoke Exposure: No Use of substances other than those prescribed or required for medical reasons: No service: No Current occupational status: employed 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 1. Little interest or pleasure in doing things: not at all 2. Feeling down, depressed, or hopeless: not at all 3. Trouble falling or staying asleep, or sleeping too much: not at all 4. Feeling tired or having little energy: several days 5. Poor appetite or overeating: several days 6. Feeling bad about yourself - or that you are a failure or have let yourself or your family down: not at all 7. Trouble concentrating on things, such as reading the newspaper or watching television: several days 8. Moving or speaking so slowly that other people could have noticed. Or the opposite - being so fidgety or restless that you have been moving around a lot more than usual: not at all 9. Thoughts that you would be better off or of hurting yourself in some way: not at all Total score: 3 Depression Screening Interpretation: Negative Depression Screening Done: Yes 64228 - PHQ-9 Billing: Yes Source: Developed by Drs. Lalito Briggs, Shayy Feldman, Tony Lizama and colleagues, with an educational joe from [employer]. Thrive Questionnaire Date Thrive assessed: 03/11/25 I am a: Patient What is your living situation today?: I have a steady place to live Within the past 12 months, did the food you bought not last and you didn't have the money to get more?: Never true Within the past 12 months, did you worry whether your food would run out before you got money to buy more?: Never true Do you have trouble paying for medicines?: No Do you have trouble getting transportation to medical appointments?: No Do you have trouble paying your heating and electricity bill?: No Do you have trouble taking care of your child, family member or friend?: No Do you have trouble with day-to-day activities such as bathing, preparing meals, shopping, managing finances, etc.?: No Are you currently unemployed and looking for a job?: No Are you interested in more education?: I choose not to answer this question Please select the resources that you would like help with: None Currently or been in a relationship where the following occur: No concerns reported THRIVE Score: 0 AUDIT C Alcohol Use Questionnaire (AUDIT-C) 1. How often do you have a drink containing alcohol?: Never 3. How often do you have six or more drinks on one occasion?: Never Total Score: 0 Score Reviewed/Action Taken: Yes ROHITH-7 AMB Questionnaire ROHITH-7 Date ROHITH - 7 assessed: 03/11/25 Feeling nervous, anxious, or on edge: 0 = Not at all Not being able to stop or control worryin = Not at all Worrying too much about different things: 0 = Not at all Trouble relaxin = Not at all Being so restless that it is hard to sit still: 0 = Not at all Becoming easily annoyed or irritable: 0 = Not at all Feeling afraid as if something awful might happen: 0 = Not at all Total ROHITH-7 score (0-4 normal; 5-9 mild; 10-14 moderate; 15-21 severe): 0 Source: Developed by Drs. Lalito Briggs, Shayy Feldman, Tony Lizama and colleagues, with an educational joe from [employer]. ROHITH-7 Assessment Billing ROHITH-7 Assessment Tool: ROHITH-7 Assessment 47993 Review of Systems Const Details: Denies chills, Denies fatigue, Denies fever(s), Denies headache(s) and Denies weakness HEENT Denies change in vision, Denies dizziness, Denies headache(s), Denies hearing loss, Denies nasal congestion, Denies sinus pain, Denies sinus pressure and Denies sore throat Card Denies chest pain, Denies lightheadedness, Denies dyspnea and Denies other (palpitations) Resp Denies cough, Denies dyspnea and Denies wheezing GI Denies abdominal pain, Denies melena, Denies hematochezia, Denies change in bowel habits, Denies dyspepsia and Denies nausea Denies hematuria and Denies dysuria Musc Denies abnormal gait, Denies myalgias, Denies arthralgias, Denies numbness and Denies tingling Skin/Breast Denies rash, Denies unusual bruising and Denies wounds Neuro Denies abnormal gait, Denies dizziness, Denies headache(s), Denies memory loss, Denies numbness, Denies Sensory deficit (Neuro), Denies tingling and Denies weakness Psych Denies anxiety, Denies depression and Denies memory loss Endo Denies cold intolerance, Denies fatigue, Denies heat intolerance, Denies polydipsia and Denies polyuria Maximiliano/Lymph Denies easy bleeding and Denies easy bruising Aller/Immun Denies wheezing Physical exam (Primary Care) Vital Signs: Last Vital Signs Temp 98 F 03/11/25 10:19 Pulse 82 03/11/25 10:19 Resp 16 03/11/25 10:19 BP 112/70 03/11/25 10:19 Pulse Ox 97 03/11/25 10:19 Oxygen Delivery Method Room Air 03/11/25 10:19 BMI result Body Mass Index 38.6 Tobacco/Smoking Status: Tobacco use Status Tobacco use date assessed 03/11/25 03/11/25 10:24 Patient Tobacco Use Status Former Tobacco user 03/11/25 10:19 e-Cigarette/Vaping Use Never Used 03/11/25 10:19 PHQ-9: PHQ-9 Score PHQ-9: Total score 3 03/11/25 10:24 Depression Screening Interpretation: Negative Thrive Assessment: Date of Thrive Assessment Date Thrive assessed 03/11/25 03/11/25 10:24 Currently or been in a relationship where the following occur: No concerns reported Const Other: General: no acute distress, well developed, alert and awake Nutritional Appearance: well nourished Orientation/consciousness: patient oriented x3 [facility] Head: Yes normocephalic and Yes atraumatic Ears: hearing grossly normal bilaterally and TM's normal bilaterally General nose exam: Normal external nose present and Normal nares present Mouth: Normal oral and palatal mucosa present and moist mucous membranes Teeth and gingiva: dentition normal Throat: Yes oropharynx normal Eyes Pupils: Equal, round and reactive pupils present and Pupil accommodation reflex normal EOM: EOMs intact bilaterally Neck Neck: Yes normal visual inspection, Yes no lymphadenopathy and Yes trachea midline Thyroid: Thyroid normal Carotids: no bruits Lymphatic: no lymphadenopathy noted Chest Chest palpation & inspection: normal inspection of the chest Resp Effort & Inspection: normal respiratory effort Auscultation: clear to auscultation bilaterally Cardio Rate: regular rate Rhythm: regular rhythm Heart sounds: S1 normal heart sound present, S2 normal heart sound present, no gallops, no murmurs and no rubs Bruits: no abdominal aortic bruits and no carotid bruits GI Palpation (GI): No Abdominal aortic bruit present, Soft to palpation, nontender, No hepatosplenomegaly present and No Rebound tenderness present Auscultation: normal bowel sounds General: Yes no CVA tenderness Back/Spine/Pelvis Back: no CVA tenderness Cervical Spine: cervical ROM normal and No Cervical spine tenderness Thoracic/Lumbar Spine: thoraco-lumbar ROM normal, No pain with thoraco-lumbar ROM, No thoracic spinal tenderness and No lumbar spinal tenderness Skin General: warm and dry. Normal skin color. Normal skin turgor Lesions: no lesions Rashes: Red, non-itchy patches with silvery scales noted to his posterior and anterior neck, consistent with psoriasis Trauma: no lacerations or abrasions Wounds: no wounds Nails: normal Neuro General: patient oriented x3, gait normal and CN's II-XI intact bilaterally Cranial nerves: Yes Equal, round and reactive pupils present Cognition (Neuro): normal cognition Gait exam (Neuro): Normal gait present Motor exam (neuro): 5/5 motor strength present throughout Sensory Exam: No Sensory deficit (Neuro) Deep tendon reflexes (DTR's): Right patellar reflex intensity grade: 2+ and Left patellar reflex intensity grade: 2+ Extrem General: Yes normal to inspection, No edema and No calf tenderness Psych Appearance: grossly normal Affect: normal affect Attitude: cooperative Thought process: Normal thought process present Coding Level of Care Code Est Pt Level 4 (13694) Est Pt Prev Care 40-64y(30029) Diagnoses Normal physical examination, routine Z00.00 Dyslipidemia E78.5 Vitamin D deficiency E55.9 Psoriasis L40.9 Additional Codes ROHITH-7 Assessment Billing - ROHITH-7 Assessment Tool: ROHITH-7 Assessment 64220 ([id number]) PHQ-9 - 59252 - PHQ-9 Billing: Yes ([id number]) Assessment & Plan Assessment & Plan (1) Normal physical examination, routine: Code(s): Z00.00 - Encounter for general adult medical examination without abnormal findings Category: Medical Plan: No significant functional limitation noted. Continue current treatment regimen. Healthy diet and routine exercise encouraged. Follow-up as planned. Verbalized understanding and agreed with the plan. (2) Dyslipidemia: Code(s): E78.5 - Hyperlipidemia, unspecified Category: Medical Plan: Recent LDL level is slightly elevated, 112, HDL level is slightly low, 31. Advised to limit foods high in saturated fat and avoid foods high in saturated fat and avoid foods high in trans fat. Routine exercise encouraged. Fast for 10-12 hours, may drink water, and perform lipid panel blood work a few days before next visit. Follow-up in 2 months for transfer of care with a new PCP within the practice in 2 months. Return sooner with symptoms or concerns. Verbalized understanding and agreed with the plan. (3) Vitamin D deficiency: Code(s): E55.9 - Vitamin D deficiency, unspecified Category: Medical Plan: Recent vitamin-D level is significantly low, 7.9. Vitamin D3 1250 mcg weekly ordered was recently prescribed; advised to take as prescribed. Recheck vitamin D level in 2 months. Verbalized understanding and agreed with the plan. (4) Psoriasis: Code(s): L40.9 - Psoriasis, unspecified Category: Medical Plan: Red, non-itchy patches with silvery scales noted to his posterior and anterior neck, consistent with psoriasis. Continue current treatment regimen. Referred to dermatology. Orders: Orders Lipid Panel 2 Months E78.5 - Hyperlipidemia, unspecified Vitamin D 25-OH Total 2 Months E55.9 - Vitamin D deficiency, unspecified
[2025-03-11 10:19] VITALS: BP 112/70; PULSE 82; RESP 16; TEMP 36.6; O2SAT 97; BMI 38.6
== END 2025-03-11 10:50 | disposition home or self-care (01) ==
LOC: HO.HMCFM 10:02
PROVIDERS: PCP Nurse Practitioner Family; Visit Provider Nurse Practitioner Family
DX: Z00.00 Encounter for general adult medical examination without abnormal findings (principal); E78.5 Hyperlipidemia, unspecified; E55.9 Vitamin D deficiency, unspecified; L40.9 Psoriasis, unspecified

== ENCOUNTER → 2025-03-11 10:02 | Outpatient (BNVA) | payer OTHER, SELFPAY | PROVIDERS: PCP Nurse Practitioner Family; Visit Provider Nurse Practitioner Family | DX: Z00.00 Encounter for general adult medical examination without abnormal findings (principal); L40.9 Psoriasis, unspecified; E78.5 Hyperlipidemia, unspecified; E55.9 Vitamin D deficiency, unspecified | CPT/HCPCS: 96127 ==